=== PATIENT | male | born 1945 | race Hispanic/Latino ===

== ENCOUNTER 2018-01-21 14:09 | Inpatient (IN) | payer MEDICARE, MEDICAID ==
[2018-01-21 14:09] VITALS: BMI 26.4
--- NOTE | 2018-01-21 15:31 | ED PDOC ---
HPI: Psych/Substance Abuse Time Seen by Provider: 01/21/18 14:24 Chief Complaint (Nursing): Psychiatric Evaluation Chief Complaint (Provider): Psychiatric Evaluation History Per: Patient, Other (halfway records) History/Exam Limitations: no limitations Additional Complaint(s): 73 year old male with history of pneumonia, NSTEMI, chronic kidney disease, and hypertension brought to the ED by halfway for psychiatric evaluation. Per halfway documentation patient refuses to eat, drink or take his medications. Patient is currently being treated for UTI with Cipro. He states he likes being at the hospital more than in the halfway. Patient offers no complaints at this time. He denies any suicidal or homicidal ideation or hallucinations. Otherwise: (-) trauma, (-) fever, (-)headache, (-) dyspnea, (-) vomiting, (-) substance abuse, (-) patient intent of initiating a suicide attempt PMD: Marlo Gary Past Medical History Reviewed: Historical Data, Nursing Documentation, Vital Signs Vital Signs: Last Vital Signs Temp 98.6 F 01/21/18 14:13 Pulse 93 H 01/21/18 14:13 Resp 18 01/21/18 14:13 BP 106/65 01/21/18 14:13 Pulse Ox 100 01/21/18 14:13 - Medical History PMH: Anxiety, Asthma, Benign Prostatic Hyperplasia (bladder problem), Bipolar Disorder, CHF, COPD, Depression, HTN, Hypercholesterolemia, Hyperlipidemia, Chronic Kidney Disease (renal insufficiency), Schizophrenia - Family History Family History: States: Unknown Family Hx - Living Arrangements Living Arrangements: Penitentiary/Assist Lv - Social History Current smoker - smoking cessation education provided: No Alcohol: None Drugs: Denies - Immunization History Hx Influenza Vaccination: No (patient refused) - Home Medications Home Medications: Ambulatory Orders Medication Instructions Recorded Acetaminophen [Tylenol] 650 mg PO Q4H PRN 11/05/17 Finasteride [Proscar] 5 mg PO DAILY@1800 11/05/17 Magnesium Hydroxide [Milk Of 30 ml PO HS PRN 11/05/17 Magnesia] Mirtazapine [Remeron] 15 mg PO HS 11/05/17 Tamsulosin [Flomax] 0.4 mg PO DAILY@1800 11/05/17 Valproic Acid [Depakene] 250 mg PO BID 11/05/17 Aspirin [Ecotrin] 81 mg PO DAILY tabec 11/13/17 Metoprolol Succinate XL [Toprol XL] 12.5 mg PO DAILY tab 11/13/17 Acetaminophen [Tylenol 325mg tab] 650 mg PO Q4 PRN 01/21/18 Bacitracin OINT [Bacitracin OINT] 1 appl TOP DAILY 01/21/18 Ciprofloxacin [Cipro] 250 mg PO BID 01/21/18 Furosemide [Lasix] 20 mg PO DAILY 01/21/18 Vitamin A & D [Vitamin A & D Oint 1 appl TOP QSHIFT 01/21/18 UD Foilpak] traZODone [Desyrel] 25 mg PO HS 01/21/18 - Allergies Allergies/Adverse Reactions: Allergies Allergy/AdvReac Type Severity Reaction Status Date / Time No Known Allergies Allergy Verified 11/17/17 14:22 Review of Systems ROS Statement: Except As Marked, All Systems Reviewed And Found Negative Psych: Negative for: Suicidal ideation (or homicidal), Other (hallucinations) Physical Exam - Reviewed Nursing Documentation Reviewed: Yes Vital Signs Reviewed: Yes - Physical Exam Comments: GENERAL APPEARANCE: Patient is awake, alert, oriented x 3, in no acute distress. EYES: (-) conjunctival pallor, (-) scleral icterus, (-) nystagmus. ENMT: Mucous membranes dry. Airway patent: (-) stridor. NECK: Supple HEART AND CARDIOVASCULAR: (-) irregularity CHEST AND RESPIRATORY: (-) rales, (-) rhonchi, (-) wheezes; breath sounds equal. Respirations even and nonlabored. ABDOMEN: Soft, (-) distention, (-) tenderness, (-) guarding. NEURO AND PSYCH: Mental status as above. Affect: flat. Pupils equal and reactive ; EOMI; (-) facial asymmetry; tongue and uvula midline. - Laboratory Results Result Diagrams: 01/22/18 05:45 01/22/18 05:45 - ECG O2 Sat by Pulse Oximetry: 100 (RA) Pulse Ox Interpretation: Normal Medical Decision Making Medical Decision Making: Time: 1455 Initial Impression: psychiatric evaluation Initial Plan: --Crisis evaluation --Re-evaluation Accucheck: 91 EKG upon ED arrival: SR @ 91bpm with occasional PVC, QTc 447 1555 Per crisis evaluation, patient to be admitted for unspecified depressive disorder per Dr Leung. CBC, CMP, EKG, CXR, U/A, Urine Drug Screen, Serum Alcohol ordered. IV access and IVF ordered. 1605 EKG: NSR @ 92bpm, QTc 499, (-) ST elevation CBC unremarkable. 1720 Alcohol Serum < 10 CMP reviewed, hyperkalemia due to hemolyzed specimen. Dehydration noted on chemistry consistent with HPI. 1735 Date of service: 01/21/2018 HISTORY: psych admission COMPARISON: Chest radiograph dated 10/06/2014 FINDINGS: LUNGS: No active pulmonary disease. PLEURA: Stable elevation of the left hemidiaphragm. No significant pleural effusion identified, no pneumothorax apparent. CARDIOVASCULAR: Atherosclerotic aortic calcifications. Cardiomediastinal silhouette within normal limits. OSSEOUS STRUCTURES: Unchanged. VISUALIZED UPPER ABDOMEN: Normal. OTHER FINDINGS: None. IMPRESSION: No active disease. Pending U/A and Urine drug screen. 3rd EKG: SR @ 89bpm (-) ST elevation, QTc 479 1810 Additional 1L NS ordered. Patient remains AAOx3, in no acute distress. Lungs clear to auscultation, cardiac RRR, abdomen soft, non-tender, repeat neuro exam shows no focal findings. 193 Straight cath performed by ED RN with no production of urine. Patient had wet diaper on evaluation. Patient unwilling to notify ED staff when he has to urinate. Upon review of halfway chart, patient had U/A performed on that confirmed UTI and patient being treated with Cipro. Utox could not be obtained at this time. Arrangements made for admission. Vitals stable. Scribe Attestation: Documented by Sherry Benson, acting as a scribe for ÓSCAR Dean. Provider Scribe Attestation: All medical record entries made by the Scribe were at my direction and personally dictated by me. I have reviewed the chart and agree that the record accurately reflects my personal performance of the history, physical exam, medical decision making, and the department course for this patient. I have also personally directed, reviewed, and agree with the discharge instructions and disposition. Disposition - Clinical Impression Clinical Impression: Failure to thrive, Depressive episode, UTI (urinary tract infection) - Patient ED Disposition Is Patient to be Admitted: Yes Discussed With : Maria Fernanda Leung Doctor Will See Patient In The: Hospital Counseled Patient/Family Regarding: Studies Performed, Diagnosis - Disposition Disposition Time: 20:00 Condition: FAIR - Pt Status Changed To: Hospital Disposition Of: Inpatient - Admit Certification Admit to Inpatient:: After my assessment, the patient will require hospitalization for at least two midnights. This is because of the severity of symptoms shown, intensity of services needed, and/or the medical risk in this patient being treated as an outpatient. - POA Present On Arrival: None Results - Lab Results Lab Results: 01/21/18 01/21/18 01/21/18 16:17 16:17 14:45 WBC 9.3 RBC 4.48 Hgb 12.6 Hct 38.6 MCV 86.0 D MCH 28.0 MCHC 32.6 L RDW 15.6 H Plt Count 196 MPV 9.4 Neut % (Auto) 77.7 H Lymph % (Auto) 11.7 L Charlton % (Auto) 8.1 Eos % (Auto) 2.0 Baso % (Auto) 0.5 Neut # (Auto) 7.2 H Lymph # (Auto) 1.1 Charlton # (Auto) 0.8 Eos # (Auto) 0.2 Baso # (Auto) 0.0 Sodium 143 Potassium 5.2 H Chloride 112 H Carbon Dioxide 21 L Anion Gap 15 BUN 36 H Creatinine 1.0 Est GFR ( Amer) > 60 Est GFR (Non-Af Amer) > 60 POC Glucose (mg/dL) 91 Random Glucose 75 Calcium 9.2 Total Bilirubin 2.0 H AST 59 D ALT < 6 L D Alkaline Phosphatase 68 Total Protein 8.4 H Albumin 3.9 Globulin 4.5 H Albumin/Globulin Ratio 0.9 L Alcohol, Quantitative < 10
[2018-01-21] MEDS ORDERED: Sodium Chloride 0.9% 1,000 ML IV ONE (15:58)
[2018-01-21 16:33] LABS: BASO % 0.5 % (0.0-2.0); EOS # 0.2 K/uL (0.0-0.7); HEMOGLOBIN 12.6 g/dL (12.0-18.0); LYMPH # 1.1 K/uL (1.0-4.3); LYMPH % 11.7 % (20.0-40.0); MEAN CORPUSCULAR HGB CONC 32.6 g/dL (33.0-37.0); MEAN PLATELET VOLUME 9.4 fl (7.2-11.7); MONO # 0.8 K/uL (0.0-0.8); MONO % 8.1 % (0.0-10.0); NEUT # 7.2 K/uL (1.8-7.0); NEUT % 77.7 % (50.0-75.0); NRBC % 0.1 % (0.0-0.0); RBC 4.48 Mil/uL (4.40-5.90); RED CELL DISTRIBUTION WIDTH 15.6 % (11.5-14.5); WHITE BLOOD COUNT 9.3 K/uL (4.8-10.8)
[2018-01-21 16:48] LABS: CALCIUM 9.2 mg/dL (8.4-10.2); GFR NON-AFRICAN AMERICAN > 60
[2018-01-21 17:00] LABS: ALB/GLOB RATIO 0.9 (1.0-2.1); ALBUMIN 3.9 g/dL (3.5-5.0); ALT/SGPT < 6 U/L (21-72); AST/SGOT 59 U/L (17-59); BLOOD UREA NITROGEN 36 mg/dl (9-20)
--- NOTE | 2018-01-21 17:16 | RAD ---
Date of service: 01/21/2018 HISTORY: psych admission COMPARISON: Chest radiograph dated 10/06/2014 FINDINGS: LUNGS: No active pulmonary disease. PLEURA: Stable elevation of the left hemidiaphragm. No significant pleural effusion identified, no pneumothorax apparent. CARDIOVASCULAR: Atherosclerotic aortic calcifications. Cardiomediastinal silhouette within normal limits. OSSEOUS STRUCTURES: Unchanged. VISUALIZED UPPER ABDOMEN: Normal. OTHER FINDINGS: None. IMPRESSION: No active disease.
[2018-01-21] MEDS ORDERED: Sodium Chloride 0.9% 1,000 ML IV SCH (18:15)
[2018-01-21] MEDS ORDERED: Alum-Mag Hydrox-Simethicone Susp (30 mL) PO PRN (22:37)
[2018-01-21] MEDS ORDERED: Magnesium Hydroxide Susp 30 ml UD PO PRN (22:37)
[2018-01-21] MEDS ORDERED: Bismuth Subsalicylate 262 mg/15 ml Sus (240 ml) PO PRN (22:37)
--- NOTE | 2018-01-21 23:11 | PCM.BM ---
<NunezDat jensen - Last Filed: 01/21/18 23:09> Treatment Plan Problems - Problems identified on initial assessmt less than optimal nutrition Date Initiated: 01/21/18 Time Initiated: 23:09 Assessment reference: NA Status: Active medication nonadherence Date Initiated: 01/21/18 Time Initiated: 23:10 Assessment reference: NA Status: Active Treatment assets and liabiliti Patient Assests: negotiates basic needs Patient Liabilities: physical pain, medical problems, auditory impairment - Milieu Protocol Maintain good personal hygiene: daily Encourage regular showers, daily Remind patient to perform daily oral care, daily Assist patient to perform ADL's Maintain personal safety: every shift Educate patient to report safety concerns to staff, every shift Monitor environment for contraband/sharps Medication safety: Monitor for expected outcome, potential side effects: every shift, Assess barriers to learning: every shift, Assess readiness for medication education: every shift <Maria Fernanda Leung - Last Filed: 01/22/18 10:45> - Diagnosis (1) Bipolar disorder Status: Acute Interventions: Medication management, Individual and group therapy, Psychoeducation 01/22/18 10:45 <Sanjana Meza - Last Filed: 01/22/18 11:55> Family Contact Family involvement: Famliy/SO not involved - Outside Agency [facility] involvment: Information-sharing Agency contact number: [phone] - Goals for Treatment Patient goals for treatment: Pt to be encouraged to attend activity and clinical groups 3-5x per week to identify at least 2 contributing factors to depression and suicide attempt. Psycho-education to be provided to patient/ family regarding benefits of medications and treatment adherence. Pt to be encouraged to participate in group milieu to develop effective coping skills to reduce depression and free of suicide ideation. Coordinate discharge resource needs by providing referral for psychiatric treatment follow up in the community. Discharge/Continuing Care - Education Needs Education Needs: Patient Medication, Patient Diagnosis/Disease Process, Patient Coping Skills, Patient Placement options, Patient Community resources, Patient Uses of Medical Equipment, Patient Health Practices/Safety, Patient Personal Hygiene/Grooming, Patient Aftercare Safety Plan - Discharge Discharge Criteria: Tolerates medication w/o severe side effects, Free of Suicidal thoughts, Ability to care for self, Reduction of target symptoms Discharge to:: Assisted - Additional Comments 01/22/18 11:51 Pt seen and discussed in team meeting. Reason for hospitalization reviewed and discussed. Pt reported he was referred to the hospital because 'I had an infection of the bladder." Pt reported his appetite is "a little better." Pt reported he likes t drink Ensure Clear. Pt assessed for suicide ideation. Pt denied making passive wishes. Pt reported he wishes to live. Pt reported refusing his medications at the [facility], but unable to state why. Pt reported his memory is "so so." Pt's social and medical issues reviewed. Pt's medications reviewed and discussed with pt. Pt's tx plan reviewed and pt verbalized agreement. SW to continue to follow case. - Treatment Team Participation Discussed with Family/SO: No Was Patient/Family/SO present at Treatment Team Meeting: Yes
[2018-01-22 06:40] LABS: HEMOGLOBIN 12.2 g/dL (12.0-18.0); MEAN CELL VOLUME 85.7 fl (80.0-94.0); MEAN CORPUSCULAR HEMOGLOBIN 28.2 pg (27.0-31.0); RBC 4.32 Mil/uL (4.40-5.90); RED CELL DISTRIBUTION WIDTH 16.2 % (11.5-14.5); WHITE BLOOD COUNT 10.2 K/uL (4.8-10.8)
[2018-01-22 06:48] LABS: LDL CHOLESTEROL 71 mg/dL (0-129)
[2018-01-22 06:54] LABS: T4 8.66 ug/dl (5.5-11.0)
[2018-01-22 06:56] LABS: IRON 15 ug/dL (49-181)
[2018-01-22 07:06] LABS: % IRON SATURATION 9 % (20-55); TOTAL IRON BINDING CAPACITY 180 ug/dL (250-450)
[2018-01-22 07:07] LABS: ALB/GLOB RATIO 0.9 (1.0-2.1); ALBUMIN 3.2 g/dL (3.5-5.0); ALT/SGPT 17 U/L (21-72); AST/SGOT 20 U/L (17-59); BLOOD UREA NITROGEN 29 mg/dl (9-20); CALCIUM 9.2 mg/dL (8.4-10.2); GFR NON-AFRICAN AMERICAN > 60; HDL CHOLESTEROL 22 MG/DL (30-70)
[2018-01-22] MEDS ORDERED: Vitamins A & D Oint UD Foilpak TOP SCH (10:15)
[2018-01-22] MEDS ORDERED: Bacitracin OINT 15GM TOP SCH (10:15)
--- NOTE | 2018-01-22 10:15 | CARD ---
APPROVED REPORT Date of service: 01/21/2018 <Conclusion> Sinus rhythm with occasional premature ventricular complexes and fusion complexes Junctional ST depression, probably normal Borderline ECG
--- NOTE | 2018-01-22 10:46 | PCM.PSYCH ---
Initial Psychiatric Evaluation - Initial Psychiatric Evaluation Type of Admission: Voluntary Legal Status: Capacity Chief Complaint (in patient's own words): Decrease functioning/ refusal to eat and take medications Patient's Reaction to Hospitalization: HPI: 73 yo male w/ h/o bipolar disorder vs schizoaffective disorder, was sent by halfway for worsening depression, refusal to eat/drink food and take medications and also make suicidal comments, such as asking how long he would need to stop eating before he would . Patient is denying to insurance writer that he made any suicidal comments and denies any acute ideation to harm self or others. He denies acute AH/VH. PPHx: Currently being prescribed Depakote, Remeron and Trazodone, but patient has been non-compliant with medications PMHx: CAD, HLD, BPH, CKD, Obstructive and reflex uropathy, HTN; current UTI- started on Cipro 01/19/18 ALL: NKDA SHx: Resides in [place], no drugs/cig/etoh Current Medications: Active Medications Generic Name Dose Route Start Last Admin Trade Name Freq PRN Reason Stop Dose Admin Acetaminophen 650 mg 01/21/18 22:37 Tylenol 325mg Tab PO Q4 PRN Pain, moderate (4-7) Al Hydrox/Mg Hydrox/Simethicone 30 ml 01/21/18 22:37 Maalox Plus 30 Ml PO Q4 PRN Dyspepsia Aspirin 81 mg 01/22/18 10:15 Ecotrin PO DAILY PACO Bacitracin 1 ea 01/22/18 10:15 Bacitracin TOP DAILY [facility] Bismuth Subsalicylate 524 mg 01/21/18 22:37 Pepto-Bismol PO Q4 PRN Diarrhea Ciprofloxacin 250 mg 01/22/18 21:00 Cipro PO Q12 [facility] Protocol Divalproex Sodium 250 mg 01/22/18 10:45 Depakote Sprinkles PO BID PACO Finasteride 5 mg 01/22/18 18:00 Proscar PO DAILY@1800 PACO Furosemide 20 mg 01/22/18 10:15 Lasix PO DAILY PACO Sodium Chloride 1,000 mls @ 1,000 mls/hr 01/21/18 18:15 01/21/18 19:21 Sodium Chloride 0.9% IV 1,000 mls/hr .Q1H PACO Administration Lorazepam 0.5 mg 01/21/18 22:37 Ativan PO 02/04/18 22:38 HS PRN Insomnia Lorazepam 0.5 mg 01/22/18 02:02 Ativan PO Q6 PRN Agitation Magnesium Hydroxide 30 ml 01/21/18 22:37 Milk Of Magnesia PO HS PRN Constipation Megestrol Acetate 400 mg 01/22/18 10:45 Megace PO DAILY [facility] Metoprolol Succinate 12.5 mg 01/22/18 10:15 Toprol Xl PO DAILY [facility] Mirtazapine 15 mg 01/22/18 22:00 Remeron PO HS [facility] Tamsulosin HCl 0.4 mg 01/22/18 18:00 Flomax PO DAILY@1800 [facility] Vitamin A 1 ea 01/22/18 10:15 Vitamin A & D Oint Ud Foilpak TOP QSHIFT [facility] Past Psychiatric History - Past Psychiatric History Previous Treatment History: Inpatient Pertinent Medical Hx (Current Medical&Sleep Prob, Allergies): Allergies Allergy/AdvReac Type Severity Reaction Status Date / Time No Known Allergies Allergy Verified 11/17/17 14:22 Acetaminophen [Tylenol] 650 mg PO Q4H PRN 11/05/17 Finasteride [Proscar] 5 mg PO DAILY@1800 11/05/17 Magnesium Hydroxide [Milk Of Magnesia] 30 ml PO HS PRN 11/05/17 Mirtazapine [Remeron] 15 mg PO HS 11/05/17 Tamsulosin [Flomax] 0.4 mg PO DAILY@1800 11/05/17 Valproic Acid [Depakene] 250 mg PO BID 11/05/17 Aspirin [Ecotrin] 81 mg PO DAILY tabec 11/13/17 Metoprolol Succinate XL [Toprol XL] 12.5 mg PO DAILY tab 11/13/17 Acetaminophen [Tylenol 325mg tab] 650 mg PO Q4 PRN 01/21/18 Bacitracin OINT [Bacitracin OINT] 1 appl TOP DAILY 01/21/18 Ciprofloxacin [Cipro] 250 mg PO BID 01/21/18 Furosemide [Lasix] 20 mg PO DAILY 01/21/18 Vitamin A & D [Vitamin A & D Oint UD Foilpak] 1 appl TOP QSHIFT 01/21/18 traZODone [Desyrel] 25 mg PO HS 01/21/18 Review of Systems - Psychiatric Psychiatric: As Per HPI, Abnormal Sleep Pattern, Behavioral Changes, Change in Appetite, Depression, Difficulty Concentrating, Irritability, Mood Swings, Suicidal Ideation Mental Status Examination - Personal Presentation Personal Presentation: Looks stated age - Affect Affect: Constricted - Motor Activity Motor Activity: Calm - Reliability in Providing Information Reliability in Providing Information: Poor, due to cognitve impairment - Speech Speech: Tangential, Coherent - Mood Mood: Depressed - Formal Thought Process Formal Thought Process: Loosening of associations - Hallucinations/Delusions Additional comments: Denies AH/VH - Obsessions/Compulsions Obsessions: No Compulsions: No - Cognitive Functions Orientation: Person, Place, Situation, Time Sensorium: Alert Estimate of Intelligence: Average Judgement: Imparied, as evidence by: Lack of insight into illness Memory: Recent impaired, as evidence by: Inability to recall events of the day, Remote impaired as evidenced by: Inability to recall sig life events - Risk Risk: Suicidal, Diminished functioning - Strength & Assets Inventory Strength & Assets Inventory: Cooperative - Limitations Limitations: Decreased memory, recent DSM 5 DX - DSM 5 DSM 5 Diagnosis: Bipolar Disorder; r/o Dementia - Recommended/Plan of Treatment Treatment Recommendations and Plan of Treatment: Bipolar Disorder; r/o Dementia -Admit to psychiatry unit -Individual and group therapy -Restart Remeron 15 mg PO HS and Depakote 250 mg PO BID; patient has not been compliant with medications -Pt on Cipro for UTI -Medicine consult -Start Megace -Dietary consult -PT/OT screening -Disposition planning Projected ELOS: 7-10 days Discharge Plan and Discharge Criteria: Discharge when patient is psychiatrically stable - Smoking Cessation Smoking Cessation Initiated: No Reason for not providing: Not indicated
[2018-01-22] MEDS: Bacitracin 500 Units/gm Oint Foilpak UD TOP SCH (11:35)
[2018-01-22] MEDS: Divalproex 125 mg Sprinkle Capsule PO SCH ×2 (11:37→17:01)
[2018-01-22] MEDS: Megestrol Acetate 40 mg/ml Cup PO SCH (11:39)
[2018-01-22] MEDS: Metoprolol Succinate 25 mg XL Tab PO SCH (11:41)
[2018-01-22 12:15] LABS: FOLATE > 20.0 ng/mL
[2018-01-23] MEDS: Megestrol Acetate 40 mg/ml Cup PO SCH (09:31)
[2018-01-23] MEDS: Divalproex 125 mg Sprinkle Capsule PO SCH ×2 (09:32→17:02)
[2018-01-23] MEDS: Bacitracin 500 Units/gm Oint Foilpak UD TOP SCH (10:04)
[2018-01-23] MEDS: Metoprolol Succinate 25 mg XL Tab PO SCH (10:04)
--- NOTE | 2018-01-23 10:05 | PCM.PYCHPN ---
Psychiatric Progress Note - Psychiatric Progress Note Patient seen today, length of contact: Patient evaluated, case discussed w/ team , chart reviewed Patient Chief Complaint: Decreased functioning/ refusal to eat and take medications Problems Identified/Issues Discussed: Patient is currently calm w/ parts data writer. He has been taking his medications. He continues to have poor appetite, but eats w/ staff encourage. Patient also given Ensure supplements. He has poor insight/judgment into his lack of self care, likely due to cognitive impairment. He denies acute SI. Medication Change: No Medical Record Reviewed: Yes Consults ordered or reviewed: Medicine/ PT/OT/ Dietitian Mental Status Examination - Cognitive Function Orientation: Person, Place, Situation, Time Memory: Impaired Association: WNL Fund of Knowledge: WNL Decription of patient's judgement and insights: Poor I/J - Mood Mood: Depressed - Affect Affect: Constricted - Speech Speech: Appropriate - Formal Thought Process Formal Thought Process: Loosening of associations Psychotic Thoughts and Behaviors: Denies AH/VH/paranoia/delusions - Suicidal Ideation Suicidal Ideation: No - Homicidal Ideation Homicidal Ideation: No Goal/Treatment Plan - Goal/Treatment Plan Need for Continued Stay: Remain at risks for inpatient hospitalization, Discharge may exacerbated symptoms Progress Toward Problem(s) and Goals/Treatment Plan: Bipolar Disorder; Dementia -Individual and group therapy -Continue Remeron 15 mg PO HS and Depakote 250 mg PO BID -Pt on Cipro for UTI -Medicine consult -Continue Megace -Dietary consult -PT/OT screening -Disposition planning Estimated Date of D/C: 01/28/18
[2018-01-23 14:43] VITALS: O2SAT 100
--- NOTE | 2018-01-23 17:51 | CP.PCM.CON ---
<EvelynLuis - Last Filed: 01/23/18 17:45> History of Present Illness - History of Present Illness History of Present Illness: 73 y/o with a PMHx of pneumonia, NSTEMI, chronic kidney disease, BPH and hypertension was admitted for psychiatric evaluation due to aggravating depression. Today, pt was evaluated and examined with Dr Chiu by bedside. Pt is not adherent to medications. Pt denies headache, chest pain, SOB, abdominal pain, nausea. Review of Systems - Constitutional Constitutional: absent: Chills, Fever - EENT Nose/Mouth/Throat: absent: Epistaxis, Neck Pain - Cardiovascular Cardiovascular: absent: Chest Pain, Palpitations - Respiratory Respiratory: absent: Dyspnea, Wheezing, Stridor - Gastrointestinal Gastrointestinal: absent: Abdominal Pain, Hematemesis, Hematochezia, Nausea Past Patient History - Infectious Disease Hx of Infectious Diseases: None - Tetanus Immunizations Tetanus Immunization: Unknown - Past Medical History & Family History Past Medical History?: Yes - Past Social History Alcohol: None Drugs: Denies - CARDIAC Hx Congestive Heart Failure: Yes Hx Hypercholesterolemia: Yes Hx Hypertension: Yes - PULMONARY Hx Asthma: Yes Hx Chronic Obstructive Pulmonary Disease (COPD): Yes - HEENT Hx HEENT Problems: Yes Hx Cataracts: Yes Other/Comment: hard of hearing - RENAL Hx Chronic Kidney Disease: Yes (renal insufficiency) - PSYCHIATRIC Hx Anxiety: Yes Hx Bipolar Disorder: Yes Hx Depression: Yes Hx Schizophrenia: Yes - SURGICAL HISTORY Hx Tonsillectomy: Yes - ANESTHESIA Hx Anesthesia: Yes Hx Anesthesia Reactions: No Hx Malignant Hyperthermia: No Meds Allergies/Adverse Reactions: Allergies Allergy/AdvReac Type Severity Reaction Status Date / Time No Known Allergies Allergy Verified 11/17/17 14:22 - Medications Medications: Current Medications Acetaminophen (Tylenol 325mg Tab) 650 mg PO Q4 PRN PRN Reason: Pain, moderate (4-7) Al Hydrox/Mg Hydrox/Simethicone (Maalox Plus 30 Ml) 30 ml PO Q4 PRN PRN Reason: Dyspepsia Aspirin (Ecotrin) 81 mg PO DAILY [facility] Last Admin: 01/23/18 09:30 Dose: 81 mg Bacitracin (Bacitracin) 1 ea TOP DAILY [facility] Last Admin: 01/23/18 10:04 Dose: 1 ea Bismuth Subsalicylate (Pepto-Bismol) 524 mg PO Q4 PRN PRN Reason: Diarrhea Ciprofloxacin (Cipro) 250 mg PO Q12 [facility] PRN Reason: Protocol Last Admin: 01/23/18 09:30 Dose: 250 mg Divalproex Sodium (Depakote Sprinkles) 250 mg PO BID [facility] Last Admin: 01/23/18 17:02 Dose: 250 mg Finasteride (Proscar) 5 mg PO DAILY@1800 [facility] Last Admin: 01/23/18 17:03 Dose: 5 mg Furosemide (Lasix) 20 mg PO DAILY [facility] Last Admin: 01/23/18 09:30 Dose: 20 mg Sodium Chloride (Sodium Chloride 0.9%) 1,000 mls @ 1,000 mls/hr IV .Q1H [facility] Last Admin: 01/21/18 19:21 Dose: 1,000 mls/hr Lactic Acid (Lac-Hydrin 12% Lotion (225 G)) 1 applic TOP TID [facility] Last Admin: 01/23/18 16:12 Dose: 1 applic Lorazepam (Ativan) 0.5 mg PO HS PRN PRN Reason: Insomnia Stop: 02/04/18 22:38 Lorazepam (Ativan) 0.5 mg PO Q6 PRN PRN Reason: Agitation Magnesium Hydroxide (Milk Of Magnesia) 30 ml PO HS PRN PRN Reason: Constipation Megestrol Acetate (Megace) 400 mg PO DAILY [facility] Last Admin: 01/23/18 09:31 Dose: 400 mg Metoprolol Succinate (Toprol Xl) 12.5 mg PO DAILY [facility] Last Admin: 01/23/18 10:04 Dose: 12.5 mg Mirtazapine (Remeron) 15 mg PO HS [facility] Last Admin: 01/22/18 21:02 Dose: 15 mg Tamsulosin HCl (Flomax) 0.4 mg PO DAILY@1800 [facility] Last Admin: 01/23/18 17:03 Dose: 0.4 mg Vitamin A (Vitamin A & D Oint Ud Foilpak) 1 ea TOP QSHIFT [facility] Physical Exam - Constitutional Appears: No Acute Distress - Head Exam Head Exam: ATRAUMATIC, NORMAL INSPECTION - Eye Exam Eye Exam: EOMI - ENT Exam ENT Exam: Mucous Membranes Dry - Neck Exam Neck exam: Positive for: Full Rom. Negative for: Meningismus, Tenderness - Respiratory Exam Respiratory Exam: NORMAL BREATHING PATTERN. absent: Rhonchi, Wheezes - Cardiovascular Exam Cardiovascular Exam: +S1, +S2 - GI/Abdominal Exam GI & Abdominal Exam: Normal Bowel Sounds, Soft. absent: Distended, Guarding, Tenderness - Neurological Exam Neurological exam: Alert, Oriented x3 Results - Vital Signs Recent Vital Signs: Last Vital Signs Temp 98.6 F 01/23/18 16:04 Pulse 85 01/23/18 16:04 Resp 18 01/23/18 16:04 BP 110/63 01/23/18 16:04 Pulse Ox 100 01/23/18 14:46 - Labs Result Diagrams: 01/22/18 05:45 01/22/18 05:45 Labs: Laboratory Results - last 24 hr 01/22/18 05:45 RPR Nonreactive Assessment & Plan - Assessment and Plan (Free Text) Assessment: 73 y/o with a PMHx of pneumonia, NSTEMI, chronic kidney disease, BPH and hypertension was admitted for psychiatric evaluation due to aggravating depression. --Pt hemodynamically stable. --Home medications reviewed and resumed --Continue psychiatry management - Date & Time Date: 01/23/18 Time: 11:55 <Kirby Chiu - Last Filed: 01/27/18 17:17> Meds - Medications Medications: Current Medications Acetaminophen (Tylenol 325mg Tab) 650 mg PO Q4 PRN PRN Reason: Pain, moderate (4-7) Al Hydrox/Mg Hydrox/Simethicone (Maalox Plus 30 Ml) 30 ml PO Q4 PRN PRN Reason: Dyspepsia Aspirin (Ecotrin) 81 mg PO DAILY [facility] Last Admin: 01/27/18 08:38 Dose: 81 mg Bacitracin (Bacitracin) 1 ea TOP DAILY [facility] Last Admin: 01/27/18 08:37 Dose: 1 ea Bismuth Subsalicylate (Pepto-Bismol) 524 mg PO Q4 PRN PRN Reason: Diarrhea Ciprofloxacin (Cipro) 250 mg PO Q12 [facility] PRN Reason: Protocol Last Admin: 01/27/18 08:38 Dose: 250 mg Divalproex Sodium (Depakote Sprinkles) 250 mg PO DAILY [facility] Last Admin: 01/27/18 08:37 Dose: 250 mg Divalproex Sodium (Depakote Dr(*Bid*)) 375 mg PO DAILY@1700 [facility] Last Admin: 01/26/18 16:26 Dose: 375 mg Finasteride (Proscar) 5 mg PO DAILY@1800 [facility] Last Admin: 01/26/18 17:49 Dose: 5 mg Furosemide (Lasix) 20 mg PO DAILY [facility] Last Admin: 01/24/18 11:41 Dose: 20 mg Lactic Acid (Lac-Hydrin 12% Lotion (225 G)) 1 applic TOP TID [facility] Last Admin: 01/27/18 16:51 Dose: 1 applic Lorazepam (Ativan) 0.5 mg PO HS PRN PRN Reason: Insomnia Stop: 02/04/18 22:38 Lorazepam (Ativan) 0.5 mg PO Q6 PRN PRN Reason: Agitation Magnesium Hydroxide (Milk Of Magnesia) 30 ml PO HS PRN PRN Reason: Constipation Megestrol Acetate (Megace) 400 mg PO DAILY [facility] Last Admin: 01/27/18 08:38 Dose: 400 mg Metoprolol Succinate (Toprol Xl) 12.5 mg PO DAILY [facility] Last Admin: 01/27/18 08:38 Dose: 12.5 mg Mirtazapine (Remeron) 22.5 mg PO HS [facility] Tamsulosin HCl (Flomax) 0.4 mg PO DAILY@1800 [facility] Last Admin: 01/26/18 17:49 Dose: 0.4 mg Vitamin A (Vitamin A & D Oint Ud Foilpak) 1 ea TOP QSHIFT [facility] Results - Vital Signs Recent Vital Signs: Last Vital Signs Temp 97 F L 01/27/18 15:48 Pulse 78 01/27/18 15:48 Resp 18 01/27/18 15:48 BP 110/63 01/27/18 15:48 Pulse Ox 100 01/23/18 14:46 - Labs Result Diagrams: 01/24/18 06:18 01/24/18 06:18 Assessment & Plan - Assessment and Plan (Free Text) Plan: I was present during evaluation and discussed with Dr Rivas re plans of care and mgt. Kirby Chiu M.D.
[2018-01-23 22:41] LABS: SQUAMOUS EPITHIAL 6 /hpf (0-5); URINE BILIRUBIN NEGATIVE (NEGATIVE); URINE BLOOD MODERATE (NEGATIVE); URINE CLARITY TURBID (Clear); URINE COLOR AMBER (YELLOW); URINE GLUCOSE (UA) NEG (Normal); URINE LEUKOCYTE ESTERASE MOD Leu/uL (Negative); URINE PROTEIN 100 mg/dL (NEGATIVE); URINE UROBILINOGEN 0.2-1.0 mg/dL (0.2-1.0); WBC CLUMPS MANY /hpf
[2018-01-24 06:37] LABS: BASO % 0.4 % (0.0-2.0); EOS # 0.4 K/uL (0.0-0.7); EOS % 4.6 % (0.0-4.0); HEMOGLOBIN 11.3 g/dL (12.0-18.0); LYMPH # 1.5 K/uL (1.0-4.3); LYMPH % 18.3 % (20.0-40.0); MEAN CELL VOLUME 84.6 fl (80.0-94.0); MEAN CORPUSCULAR HEMOGLOBIN 28.1 pg (27.0-31.0); MEAN CORPUSCULAR HGB CONC 33.2 g/dL (33.0-37.0); MEAN PLATELET VOLUME 9.7 fl (7.2-11.7); MONO # 0.8 K/uL (0.0-0.8); MONO % 9.2 % (0.0-10.0); NEUT # 5.6 K/uL (1.8-7.0); NEUT % 67.5 % (50.0-75.0); NRBC % 0.1 % (0.0-0.0); RED CELL DISTRIBUTION WIDTH 15.6 % (11.5-14.5); WHITE BLOOD COUNT 8.3 K/uL (4.8-10.8)
[2018-01-24 07:04] LABS: ALB/GLOB RATIO 0.8 (1.0-2.1); ALBUMIN 2.9 g/dL (3.5-5.0); ALT/SGPT 18 U/L (21-72); AST/SGOT 21 U/L (17-59); BLOOD UREA NITROGEN 23 mg/dl (9-20); GFR NON-AFRICAN AMERICAN > 60
--- NOTE | 2018-01-24 09:00 | PCM.PYCHPN ---
Psychiatric Progress Note - Psychiatric Progress Note Patient seen today, length of contact: Patient evaluated, case discussed w/ team , chart reviewed Patient Chief Complaint: Decreased functioning/ refusal to eat and take medications Problems Identified/Issues Discussed: Patient is calm and pleasant. He continues to have poor appetite and PO intake , despite staff encouragement and attempting to feed the patient. He will drink Ensure Clear, but needs to be reminded to keep drinking. He has poor insight/judgment into his lack of self care, likely due to cognitive impairment. He denies acute SI. Diagnostic Results: VPA 27.7 on 01/24/18 Medication Change: Yes (Increase Depakote) Medical Record Reviewed: Yes Consults ordered or reviewed: Medicine/ PT/OT/ Dietitian/ Psychology consult Mental Status Examination - Cognitive Function Orientation: Person, Place, Situation, Time Memory: Impaired Attention: Poor Concentration: Poor Decription of patient's judgement and insights: Poor I/J - Mood Mood: Neutral - Affect Affect: Constricted - Speech Speech: Appropriate - Formal Thought Process Formal Thought Process: Loosening of associations Psychotic Thoughts and Behaviors: Denies AH/VH/paranoia/delusions - Suicidal Ideation Suicidal Ideation: No - Homicidal Ideation Homicidal Ideation: No Goal/Treatment Plan - Goal/Treatment Plan Need for Continued Stay: Remain at risks for inpatient hospitalization, Discharge may exacerbated symptoms, Severe functional impairment Progress Toward Problem(s) and Goals/Treatment Plan: Bipolar Disorder; Dementia -Individual and group therapy -Continue Remeron 15 mg PO HS -Increase Depakote to 250 mg PO Daily/ 375 mg PO Daily@1700; VPA 27.7 on -Pt on Cipro for UTI -Medicine consult -Continue Megace -Dietary consult -PT/OT screening -Psychology consult to evaluate neurocognitive function -Disposition planning Estimated Date of D/C: 01/28/18
[2018-01-24] MEDS: Bacitracin 500 Units/gm Oint Foilpak UD TOP SCH (09:13)
[2018-01-24] MEDS: Divalproex 125 mg Sprinkle Capsule PO SCH (09:16)
[2018-01-24] MEDS: Megestrol Acetate 40 mg/ml Cup PO SCH (09:17)
[2018-01-24] MEDS: Metoprolol Succinate 25 mg XL Tab PO SCH (09:18)
--- NOTE | 2018-01-24 11:26 | CP.PCM.CON ---
History of Present Illness - History of Present Illness History of Present Illness: Pt is a 73 year old male admitted to [facility] and referred to the science writer for evaluation. On the DRS, pt scored an overall score of 103. Pt scored within normal limits on Attention. His other skills all fell in the Deficient Range ( Memory, Initiation, conceptualization, and construction) Overall 103 Attention 35 wnl Construction 3 deficient Conceptualization 26 deficient Memory 13 deficient Initiation 26 deficient Cognitive decline evident from 1 1/2 year ago when the patient was seen by the science writer at [facility]. Past Patient History - Infectious Disease Hx of Infectious Diseases: None - Tetanus Immunizations Tetanus Immunization: Unknown - Past Medical History & Family History Past Medical History?: Yes - Past Social History Alcohol: None Drugs: Denies - CARDIAC Hx Congestive Heart Failure: Yes Hx Hypercholesterolemia: Yes Hx Hypertension: Yes - PULMONARY Hx Asthma: Yes Hx Chronic Obstructive Pulmonary Disease (COPD): Yes - HEENT Hx HEENT Problems: Yes Hx Cataracts: Yes Other/Comment: hard of hearing - RENAL Hx Chronic Kidney Disease: Yes (renal insufficiency) - PSYCHIATRIC Hx Anxiety: Yes Hx Bipolar Disorder: Yes Hx Depression: Yes Hx Schizophrenia: Yes - SURGICAL HISTORY Hx Tonsillectomy: Yes - ANESTHESIA Hx Anesthesia: Yes Hx Anesthesia Reactions: No Hx Malignant Hyperthermia: No Meds Allergies/Adverse Reactions: Allergies Allergy/AdvReac Type Severity Reaction Status Date / Time No Known Allergies Allergy Verified 11/17/17 14:22 - Medications Medications: Current Medications Acetaminophen (Tylenol 325mg Tab) 650 mg PO Q4 PRN PRN Reason: Pain, moderate (4-7) Al Hydrox/Mg Hydrox/Simethicone (Maalox Plus 30 Ml) 30 ml PO Q4 PRN PRN Reason: Dyspepsia Aspirin (Ecotrin) 81 mg PO DAILY [facility] Last Admin: 01/24/18 09:15 Dose: 81 mg Bacitracin (Bacitracin) 1 ea TOP DAILY [facility] Last Admin: 01/24/18 09:13 Dose: 1 ea Bismuth Subsalicylate (Pepto-Bismol) 524 mg PO Q4 PRN PRN Reason: Diarrhea Ciprofloxacin (Cipro) 250 mg PO Q12 [facility] PRN Reason: Protocol Last Admin: 01/24/18 09:13 Dose: 250 mg Divalproex Sodium (Depakote Sprinkles) 250 mg PO DAILY [facility] Divalproex Sodium (Depakote Dr(*Bid*)) 375 mg PO DAILY@1700 [facility] Finasteride (Proscar) 5 mg PO DAILY@1800 [facility] Last Admin: 01/23/18 17:03 Dose: 5 mg Furosemide (Lasix) 20 mg PO DAILY [facility] Last Admin: 01/23/18 09:30 Dose: 20 mg Lactic Acid (Lac-Hydrin 12% Lotion (225 G)) 1 applic TOP TID [facility] Last Admin: 01/24/18 09:13 Dose: 1 applic Lorazepam (Ativan) 0.5 mg PO HS PRN PRN Reason: Insomnia Stop: 02/04/18 22:38 Lorazepam (Ativan) 0.5 mg PO Q6 PRN PRN Reason: Agitation Magnesium Hydroxide (Milk Of Magnesia) 30 ml PO HS PRN PRN Reason: Constipation Megestrol Acetate (Megace) 400 mg PO DAILY [facility] Last Admin: 01/24/18 09:17 Dose: 400 mg Metoprolol Succinate (Toprol Xl) 12.5 mg PO DAILY [facility] Last Admin: 01/24/18 09:18 Dose: Not Given Mirtazapine (Remeron) 15 mg PO HS [facility] Last Admin: 01/23/18 21:10 Dose: 15 mg Tamsulosin HCl (Flomax) 0.4 mg PO DAILY@1800 [facility] Last Admin: 01/23/18 17:03 Dose: 0.4 mg Vitamin A (Vitamin A & D Oint Ud Foilpak) 1 ea TOP QSHIFT [facility] Results - Vital Signs Recent Vital Signs: Last Vital Signs Temp 97.1 F L 01/24/18 05:53 Pulse 99 H 01/24/18 09:18 Resp 20 01/24/18 05:53 BP 95/60 L 01/24/18 09:18 Pulse Ox 100 01/23/18 14:46 - Labs Result Diagrams: 01/24/18 06:18 01/24/18 06:18 Labs: Laboratory Results - last 24 hr 01/23/18 01/24/18 01/24/18 22:27 06:18 06:18 WBC 8.3 RBC 4.00 L Hgb 11.3 L Hct 33.9 L MCV 84.6 MCH 28.1 MCHC 33.2 RDW 15.6 H Plt Count 198 MPV 9.7 Neut % (Auto) 67.5 Lymph % (Auto) 18.3 L [place] % (Auto) 9.2 Eos % (Auto) 4.6 H Baso % (Auto) 0.4 Neut # (Auto) 5.6 Lymph # (Auto) 1.5 [place] # (Auto) 0.8 Eos # (Auto) 0.4 Baso # (Auto) 0.0 Sodium Potassium Chloride Carbon Dioxide Anion Gap BUN Creatinine Est GFR ( Amer) Est GFR (Non-Af Amer) Random Glucose Calcium Total Bilirubin AST ALT Alkaline Phosphatase Total Protein Albumin Globulin Albumin/Globulin Ratio Urine Color Noni Urine Clarity Turbid Urine pH 6.0 Ur Specific [place] 1.016 Urine Protein 100 Urine Glucose (UA) Neg Urine Ketones Negative Urine Blood Moderate Urine Nitrate Negative Urine Bilirubin Negative Urine Urobilinogen 0.2-1.0 Ur Leukocyte Esterase Mod Urine RBC (Auto) 249 H Urine WBC Clumps (Auto) Many H Urine Microscopic WBC 4086 H Ur Squamous Epith Cells 6 H Ur Transition Epith Cell 1 Valproic Acid 27.7 L 01/24/18 06:18 WBC RBC Hgb Hct MCV MCH MCHC RDW Plt Count MPV Neut % (Auto) Lymph % (Auto) [place] % (Auto) Eos % (Auto) Baso % (Auto) Neut # (Auto) Lymph # (Auto) [place] # (Auto) Eos # (Auto) Baso # (Auto) Sodium 145 Potassium 3.3 L Chloride 112 H Carbon Dioxide 28 Anion Gap 8 L BUN 23 H Creatinine 1.1 Est GFR ( Amer) > 60 Est GFR (Non-Af Amer) > 60 Random Glucose 80 Calcium 9.0 Total Bilirubin 0.9 AST 21 ALT 18 L Alkaline Phosphatase 55 Total Protein 6.5 Albumin 2.9 L Globulin 3.6 Albumin/Globulin Ratio 0.8 L Urine Color Urine Clarity Urine pH Ur Specific [place] Urine Protein Urine Glucose (UA) Urine Ketones Urine Blood Urine Nitrate Urine Bilirubin Urine Urobilinogen Ur Leukocyte Esterase Urine RBC (Auto) Urine WBC Clumps (Auto) Urine Microscopic WBC Ur Squamous Epith Cells Ur Transition Epith Cell Valproic Acid
[2018-01-24] MEDS ORDERED: Potassium Chloride 20 mEq ER Tab PO ONE (13:05)
[2018-01-24] MEDS: Divalproex 125 mg DR (BID formulation) PO SCH (16:33)
[2018-01-25] MEDS: Divalproex 125 mg Sprinkle Capsule PO SCH (08:17)
[2018-01-25] MEDS: Megestrol Acetate 40 mg/ml Cup PO SCH (08:18)
[2018-01-25] MEDS: Metoprolol Succinate 25 mg XL Tab PO SCH (08:19)
[2018-01-25] MEDS: Bacitracin 500 Units/gm Oint Foilpak UD TOP SCH (08:21)
[2018-01-25] MEDS ORDERED: Potassium Chloride 10 mEq ER Tab PO SCH (09:00)
--- NOTE | 2018-01-25 12:40 | PCM.PYCHPN ---
Psychiatric Progress Note - Psychiatric Progress Note Patient seen today, length of contact: Patient evaluated, case discussed w/ team , chart reviewed Patient Chief Complaint: ok Problems Identified/Issues Discussed: pt evaluated in day room , on wheel chair, partial eye contact, soft under productive speech, oriented to person only , no reported behavioral disturbances , limited insight into illness, denied S/H I DSM 5 Symptoms Update: MAJOR NEUROCOGNITIVE DISORDER Medication Change: No (Increase Depakote) Medical Record Reviewed: Yes Mental Status Examination - Cognitive Function Orientation: Person, Place, Situation, Time Memory: Impaired Attention: Poor Concentration: Poor - Mood Mood: Neutral - Affect Affect: Constricted - Speech Speech: Appropriate - Formal Thought Process Formal Thought Process: Loosening of associations Psychotic Thoughts and Behaviors: NON ELICITED - Suicidal Ideation Suicidal Ideation: No - Homicidal Ideation Homicidal Ideation: No Goal/Treatment Plan - Goal/Treatment Plan Need for Continued Stay: Remain at risks for inpatient hospitalization, Discharge may exacerbated symptoms, Severe functional impairment Progress Toward Problem(s) and Goals/Treatment Plan: continue with depakote and remeron Estimated Date of D/C: 01/28/18
[2018-01-25] MEDS: Divalproex 125 mg DR (BID formulation) PO SCH (17:08)
[2018-01-26] MEDS: Metoprolol Succinate 25 mg XL Tab PO SCH (08:25)
[2018-01-26] MEDS: Divalproex 125 mg Sprinkle Capsule PO SCH (08:26)
[2018-01-26] MEDS: Megestrol Acetate 40 mg/ml Cup PO SCH (08:26)
[2018-01-26] MEDS: Bacitracin 500 Units/gm Oint Foilpak UD TOP SCH (08:27)
--- NOTE | 2018-01-26 12:35 | PCM.PYCHPN ---
Psychiatric Progress Note - Psychiatric Progress Note Patient seen today, length of contact: Patient evaluated, case discussed w/ team , chart reviewed Patient Chief Complaint: I am feeling good Problems Identified/Issues Discussed: pt evaluated in day room , on wheel chair, reported mood fine, appropriate affect, no reported side effects of medications, slightly improved appetite, no changes in sleep , no reported behavioral disturbances, limited insight into illness, denied S/H I DSM 5 Symptoms Update: bipolar disorder major neurocognitive disorder Medication Change: No Medical Record Reviewed: Yes Mental Status Examination - Cognitive Function Orientation: Person, Place, Situation, Time Memory: Impaired Attention: Poor Concentration: Poor Fund of Knowledge: Poor Decription of patient's judgement and insights: poor insight and judgment - Mood Mood: Neutral - Affect Affect: Constricted - Speech Speech: Soft - Formal Thought Process Formal Thought Process: Loosening of associations Psychotic Thoughts and Behaviors: pt denied perceptual disturbances, non elicited - Suicidal Ideation Suicidal Ideation: No - Homicidal Ideation Homicidal Ideation: No Goal/Treatment Plan - Goal/Treatment Plan Need for Continued Stay: Remain at risks for inpatient hospitalization, Discharge may exacerbated symptoms, Severe functional impairment Progress Toward Problem(s) and Goals/Treatment Plan: continue with depakote and remeron group and supportive therapy disposition planning Estimated Date of D/C: 01/28/18
[2018-01-26] MEDS: Divalproex 125 mg DR (BID formulation) PO SCH (16:26)
--- NOTE | 2018-01-27 08:32 | PCM.PYCHPN ---
Psychiatric Progress Note - Psychiatric Progress Note Patient seen today, length of contact: Patient evaluated, case discussed w/ team , chart reviewed Patient Chief Complaint: Decreased functioning/ refusal to eat and take medications Problems Identified/Issues Discussed: Patient is calm and pleasant, but he continues to have poor PO intake. He has poor insight/judgment into his lack of self care, likely due to cognitive impairment. He denies acute SI. Diagnostic Results: VPA 27.7 on 01/24/18 Medication Change: Yes (Increase Remeron to 22.5 mg PO HS) Medical Record Reviewed: Yes Consults ordered or reviewed: Medicine/ PT/OT/ Dietitian/ Psychology consult Mental Status Examination - Cognitive Function Orientation: Person, Place, Situation, Time Memory: Impaired Attention: Poor Concentration: Poor Fund of Knowledge: Poor Decription of patient's judgement and insights: Poor I/J - Mood Mood: Neutral - Affect Affect: Constricted - Speech Speech: Soft - Formal Thought Process Formal Thought Process: Loosening of associations Psychotic Thoughts and Behaviors: Denies AH/VH/paranoia - Suicidal Ideation Suicidal Ideation: No - Homicidal Ideation Homicidal Ideation: No Goal/Treatment Plan - Goal/Treatment Plan Need for Continued Stay: Remain at risks for inpatient hospitalization, Discharge may exacerbated symptoms, Severe functional impairment Progress Toward Problem(s) and Goals/Treatment Plan: Bipolar Disorder; Dementia -Individual and group therapy -Increase Remeron to 22.5 mg PO HS -Continue Depakote 250 mg PO Daily/ 375 mg PO Daily@1700; VPA 27.7 on 01/24/18 -Pt on Cipro for UTI -Medicine consult -Continue Megace -Dietary consult -Psychology consult -PT/OT -Disposition planning Estimated Date of D/C: 01/31/18
[2018-01-27] MEDS: Bacitracin 500 Units/gm Oint Foilpak UD TOP SCH (08:37)
[2018-01-27] MEDS: Divalproex 125 mg Sprinkle Capsule PO SCH (08:37)
[2018-01-27] MEDS: Megestrol Acetate 40 mg/ml Cup PO SCH (08:38)
[2018-01-27] MEDS: Metoprolol Succinate 25 mg XL Tab PO SCH (08:38)
--- NOTE | 2018-01-27 13:34 | CP.PCM.CON ---
History of Present Illness - History of Present Illness History of Present Illness: Consult note for Dr. Day: 73 yo male patient, seen and evaluated for right foot ulceration. Patient states that his toes hurt. Unable to obtain full medical history at this time from patient. Patient denies N/V/F/SOB/CP. PMH: CHF, asthma ALL: NKDA Review of Systems - Review of Systems Review of Systems: As per HPI Past Patient History - Infectious Disease Hx of Infectious Diseases: None - Tetanus Immunizations Tetanus Immunization: Unknown - Past Medical History & Family History Past Medical History?: Yes - Past Social History Alcohol: None Drugs: Denies - CARDIAC Hx Congestive Heart Failure: Yes Hx Hypercholesterolemia: Yes Hx Hypertension: Yes - PULMONARY Hx Asthma: Yes Hx Chronic Obstructive Pulmonary Disease (COPD): Yes - HEENT Hx HEENT Problems: Yes Hx Cataracts: Yes Other/Comment: hard of hearing - RENAL Hx Chronic Kidney Disease: Yes (renal insufficiency) - PSYCHIATRIC Hx Anxiety: Yes Hx Bipolar Disorder: Yes Hx Depression: Yes Hx Schizophrenia: Yes - SURGICAL HISTORY Hx Tonsillectomy: Yes - ANESTHESIA Hx Anesthesia: Yes Hx Anesthesia Reactions: No Hx Malignant Hyperthermia: No Meds Allergies/Adverse Reactions: Allergies Allergy/AdvReac Type Severity Reaction Status Date / Time No Known Allergies Allergy Verified 11/17/17 14:22 - Medications Medications: Current Medications Acetaminophen (Tylenol 325mg Tab) 650 mg PO Q4 PRN PRN Reason: Pain, moderate (4-7) Al Hydrox/Mg Hydrox/Simethicone (Maalox Plus 30 Ml) 30 ml PO Q4 PRN PRN Reason: Dyspepsia Aspirin (Ecotrin) 81 mg PO DAILY [facility] Last Admin: 01/27/18 08:38 Dose: 81 mg Bacitracin (Bacitracin) 1 ea TOP DAILY [facility] Last Admin: 01/27/18 08:37 Dose: 1 ea Bismuth Subsalicylate (Pepto-Bismol) 524 mg PO Q4 PRN PRN Reason: Diarrhea Ciprofloxacin (Cipro) 250 mg PO Q12 [facility] PRN Reason: Protocol Last Admin: 01/27/18 08:38 Dose: 250 mg Divalproex Sodium (Depakote Sprinkles) 250 mg PO DAILY [facility] Last Admin: 01/27/18 08:37 Dose: 250 mg Divalproex Sodium (Depakote Dr(*Bid*)) 375 mg PO DAILY@1700 [facility] Last Admin: 01/26/18 16:26 Dose: 375 mg Finasteride (Proscar) 5 mg PO DAILY@1800 [facility] Last Admin: 01/26/18 17:49 Dose: 5 mg Furosemide (Lasix) 20 mg PO DAILY [facility] Last Admin: 01/24/18 11:41 Dose: 20 mg Lactic Acid (Lac-Hydrin 12% Lotion (225 G)) 1 applic TOP TID [facility] Last Admin: 01/27/18 12:19 Dose: 1 applic Lorazepam (Ativan) 0.5 mg PO HS PRN PRN Reason: Insomnia Stop: 02/04/18 22:38 Lorazepam (Ativan) 0.5 mg PO Q6 PRN PRN Reason: Agitation Magnesium Hydroxide (Milk Of Magnesia) 30 ml PO HS PRN PRN Reason: Constipation Megestrol Acetate (Megace) 400 mg PO DAILY [facility] Last Admin: 01/27/18 08:38 Dose: 400 mg Metoprolol Succinate (Toprol Xl) 12.5 mg PO DAILY [facility] Last Admin: 01/27/18 08:38 Dose: 12.5 mg Mirtazapine (Remeron) 22.5 mg PO HS [facility] Tamsulosin HCl (Flomax) 0.4 mg PO DAILY@1800 [facility] Last Admin: 01/26/18 17:49 Dose: 0.4 mg Vitamin A (Vitamin A & D Oint Ud Foilpak) 1 ea TOP QSHIFT [facility] Physical Exam - Constitutional Appears: Well, Non-toxic, No Acute Distress - Extremities Exam Additional comments: Vascular: DP/PT 1/4 bilaterally, CFT >3 seconds to all digits, hyperpigmentation noted to bilateral lower extremities, venous stasis noted b/ l. Edema noted to b/l lower extremities with +2 edema noted to right second metatarsal and hallux Ortho: HAV deformity bilaterally, unable to assess MMT Neuro: Gross sensation intact, protective sensation unable to assess bilaterally. Derm: Ulceration noted to dorsal aspect of right second digit measuring approximately 1x1x.01 cm, no probe to bone, no drainage, no tracking, no undermining. Cellulitis extending from distal apsect of second digit to base of proximal phalanx. Friable skin noted to dorsal medial aspect of right hallux, interdigital maceration noted to all interspaces bilaterally. Thickened, hypertrophic nails x10. - Neurological Exam Neurological exam: Alert - Psychiatric Exam Psychiatric exam: Normal Affect, Normal Mood Results - Vital Signs Recent Vital Signs: Last Vital Signs Temp 96.9 F L 01/27/18 06:00 Pulse 99 H 01/27/18 08:38 Resp 19 01/27/18 06:00 BP 130/72 01/27/18 08:38 Pulse Ox 100 01/23/18 14:46 - Labs Result Diagrams: 01/24/18 06:18 01/24/18 06:18 Assessment & Plan - Assessment and Plan (Free Text) Assessment: 73 yo male patient, seen and evaluated for right second digit ulceration and cellulitis Plan: Patient seen and evaluated Patient plan discussed with Dr. Barb Sevilla foot and ankle x-ray's; ordered ANGELICA/PVRs; ordered Wound dressed with DSD Thank you for the consult and allowing us to partake in the care of this patient - Date & Time Date: 01/27/18 Time: 13:49
--- NOTE | 2018-01-27 17:23 | CP.PCM.PN ---
Subjective - Date & Time of Evaluation Date of Evaluation: 01/25/18 Time of Evaluation: 10:00 - Subjective Subjective: Patient remain stable BP is within normal range. Has no chest pain or SOB. Objective - Vital Signs/Intake and Output Vital Signs (last 24 hours): Temp Pulse Resp BP Pulse Ox 97 F L 78 18 110/63 100 01/27/18 15:48 01/27/18 15:48 01/27/18 15:48 01/27/18 15:48 01/23/18 14:46 - Medications Medications: Current Medications Acetaminophen (Tylenol 325mg Tab) 650 mg PO Q4 PRN PRN Reason: Pain, moderate (4-7) Al Hydrox/Mg Hydrox/Simethicone (Maalox Plus 30 Ml) 30 ml PO Q4 PRN PRN Reason: Dyspepsia Aspirin (Ecotrin) 81 mg PO DAILY [facility] Last Admin: 01/27/18 08:38 Dose: 81 mg Bacitracin (Bacitracin) 1 ea TOP DAILY [facility] Last Admin: 01/27/18 08:37 Dose: 1 ea Bismuth Subsalicylate (Pepto-Bismol) 524 mg PO Q4 PRN PRN Reason: Diarrhea Ciprofloxacin (Cipro) 250 mg PO Q12 [facility] PRN Reason: Protocol Last Admin: 01/27/18 08:38 Dose: 250 mg Divalproex Sodium (Depakote Sprinkles) 250 mg PO DAILY [facility] Last Admin: 01/27/18 08:37 Dose: 250 mg Divalproex Sodium (Depakote Dr(*Bid*)) 375 mg PO DAILY@1700 [facility] Last Admin: 01/26/18 16:26 Dose: 375 mg Finasteride (Proscar) 5 mg PO DAILY@1800 [facility] Last Admin: 01/26/18 17:49 Dose: 5 mg Furosemide (Lasix) 20 mg PO DAILY [facility] Last Admin: 01/24/18 11:41 Dose: 20 mg Lactic Acid (Lac-Hydrin 12% Lotion (225 G)) 1 applic TOP TID [facility] Last Admin: 01/27/18 16:51 Dose: 1 applic Lorazepam (Ativan) 0.5 mg PO HS PRN PRN Reason: Insomnia Stop: 02/04/18 22:38 Lorazepam (Ativan) 0.5 mg PO Q6 PRN PRN Reason: Agitation Magnesium Hydroxide (Milk Of Magnesia) 30 ml PO HS PRN PRN Reason: Constipation Megestrol Acetate (Megace) 400 mg PO DAILY [facility] Last Admin: 01/27/18 08:38 Dose: 400 mg Metoprolol Succinate (Toprol Xl) 12.5 mg PO DAILY [facility] Last Admin: 01/27/18 08:38 Dose: 12.5 mg Mirtazapine (Remeron) 22.5 mg PO [facility] Tamsulosin HCl (Flomax) 0.4 mg PO DAILY@1800 [facility] Last Admin: 01/26/18 17:49 Dose: 0.4 mg Vitamin A (Vitamin A & D Oint Ud Foilpak) 1 ea TOP QSHIFT [facility] - Labs Labs: 01/24/18 06:18 01/24/18 06:18 - Head Exam Head Exam: NORMAL INSPECTION - Eye Exam Eye Exam: Normal appearance - ENT Exam ENT Exam: Mucous Membranes Moist - Respiratory Exam Respiratory Exam: Clear to Ausculation Bilateral - GI/Abdominal Exam GI & Abdominal Exam: Normal Bowel Sounds - Neurological Exam Neurological Exam: Awake, Oriented x3 - Psychiatric Exam Psychiatric exam: Normal Mood Assessment and Plan (1) Depressive episode Status: Acute (2) BPH (benign prostatic hyperplasia) Status: Acute (3) COPD (chronic obstructive pulmonary disease) Status: Acute (4) Hypertension Status: Acute - Assessment and Plan (Free Text) Plan: Cont meds Cont tx Follow up labs.
[2018-01-27] MEDS: Divalproex 125 mg DR (BID formulation) PO SCH (17:43)
[2018-01-28] MEDS: Divalproex 125 mg Sprinkle Capsule PO SCH ×2 (08:48→17:17)
[2018-01-28] MEDS: Bacitracin 500 Units/gm Oint Foilpak UD TOP SCH (08:49)
[2018-01-28] MEDS: Megestrol Acetate 40 mg/ml Cup PO SCH ×2 (08:49→09:04)
[2018-01-28] MEDS: Metoprolol Succinate 25 mg XL Tab PO SCH (09:04)
--- NOTE | 2018-01-28 09:23 | PCM.PYCHPN ---
Psychiatric Progress Note - Psychiatric Progress Note Patient seen today, length of contact: Patient evaluated, case discussed w/ team , chart reviewed Patient Chief Complaint: Decreased functioning/ refusal to eat and take medications Problems Identified/Issues Discussed: Patient continues to have poor PO intake. He has poor insight/judgment into his lack of self care. He is calm and pleasant, denies acutely feeling depressed or anxious. Diagnostic Results: VPA 27.7 on 01/24/18 Medication Change: No Medical Record Reviewed: Yes Consults ordered or reviewed: Medicine/ PT/OT/ Dietitian/ Psychology consult Mental Status Examination - Cognitive Function Orientation: Person, Place, Situation, Time Memory: Impaired Attention: Poor Concentration: Poor Fund of Knowledge: Poor Decription of patient's judgement and insights: Poor I/J - Mood Mood: Neutral - Affect Affect: Constricted - Speech Speech: Soft - Formal Thought Process Formal Thought Process: Loosening of associations Psychotic Thoughts and Behaviors: Denies AH/VH/paranoia - Suicidal Ideation Suicidal Ideation: No - Homicidal Ideation Homicidal Ideation: No Goal/Treatment Plan - Goal/Treatment Plan Need for Continued Stay: Remain at risks for inpatient hospitalization, Discharge may exacerbated symptoms, Severe functional impairment Progress Toward Problem(s) and Goals/Treatment Plan: Bipolar Disorder; Dementia -Monitor caloric intake -Individual and group therapy -Continue Remeron 22.5 mg PO HS -Continue Depakote 250 mg PO Daily/ 375 mg PO Daily@1700; VPA 27.7 on 01/24/18 -Pt on Cipro for UTI -Medicine consult -Continue Megace -Dietary consult -Psychology consult -PT/OT -Disposition planning Estimated Date of D/C: 01/31/18
--- NOTE | 2018-01-28 10:24 | CP.PCM.PN ---
Subjective - Date & Time of Evaluation Date of Evaluation: 01/28/18 Time of Evaluation: 10:22 - Subjective Subjective: Progress note for Dr. Day: 73 yo male patient, seen and evaluated for right foot ulceration. Patient states that his toes hurt and he has kept his dressing dry. Unable to obtain full medical history at this time from patient. Patient denies N/V/F/SOB/CP. Objective - Vital Signs/Intake and Output Vital Signs (last 24 hours): Temp Pulse Resp BP Pulse Ox 97.6 F 114 H 19 94/63 L 100 01/28/18 06:00 01/28/18 09:04 01/28/18 06:00 01/28/18 09:04 01/23/18 14:46 - Medications Medications: Current Medications Acetaminophen (Tylenol 325mg Tab) 650 mg PO Q4 PRN PRN Reason: Pain, moderate (4-7) Al Hydrox/Mg Hydrox/Simethicone (Maalox Plus 30 Ml) 30 ml PO Q4 PRN PRN Reason: Dyspepsia Aspirin (Ecotrin) 81 mg PO DAILY [facility] Last Admin: 01/28/18 08:49 Dose: 81 mg Bacitracin (Bacitracin) 1 ea TOP DAILY [facility] Last Admin: 01/28/18 08:49 Dose: 1 ea Bismuth Subsalicylate (Pepto-Bismol) 524 mg PO Q4 PRN PRN Reason: Diarrhea Ciprofloxacin (Cipro) 500 mg PO Q12 [facility] PRN Reason: Protocol Last Admin: 01/28/18 08:48 Dose: 500 mg Divalproex Sodium (Depakote Sprinkles) 250 mg PO DAILY [facility] Last Admin: 01/28/18 08:48 Dose: 250 mg Divalproex Sodium (Depakote Dr(*Bid*)) 375 mg PO DAILY@1700 [facility] Last Admin: 01/27/18 17:43 Dose: 375 mg Finasteride (Proscar) 5 mg PO DAILY@1800 [facility] Last Admin: 01/27/18 17:43 Dose: 5 mg Furosemide (Lasix) 20 mg PO DAILY [facility] Last Admin: 01/24/18 11:41 Dose: 20 mg Lactic Acid (Lac-Hydrin 12% Lotion (225 G)) 1 applic TOP TID [facility] Last Admin: 01/28/18 08:48 Dose: 1 applic Lorazepam (Ativan) 0.5 mg PO HS PRN PRN Reason: Insomnia Stop: 02/04/18 22:38 Lorazepam (Ativan) 0.5 mg PO Q6 PRN PRN Reason: Agitation Magnesium Hydroxide (Milk Of Magnesia) 30 ml PO HS PRN PRN Reason: Constipation Megestrol Acetate (Megace) 400 mg PO DAILY [facility] Last Admin: 01/28/18 09:04 Dose: Not Given Metoprolol Succinate (Toprol Xl) 12.5 mg PO DAILY [facility] Last Admin: 01/28/18 09:04 Dose: Not Given Mirtazapine (Remeron) 22.5 mg PO HS [facility] Last Admin: 01/27/18 21:10 Dose: 22.5 mg Tamsulosin HCl (Flomax) 0.4 mg PO DAILY@1800 [facility] Last Admin: 01/27/18 17:44 Dose: 0.4 mg Vitamin A (Vitamin A & D Oint Ud Foilpak) 1 ea TOP QSHIFT [facility] - Labs Labs: 01/24/18 06:18 01/24/18 06:18 - Constitutional Appears: Well, Non-toxic, No Acute Distress - Extremities Exam Additional comments: Vascular: DP/PT nonpalpable right foot, CFT <3 seconds to all digits, hyperpigmentation noted to bilateral lower extremities, venous stasis noted b/ l. Edema noted to b/l lower extremities with +2 edema noted to right second metatarsal and hallux Ortho: HAV deformity bilaterally, unable to assess MMT Neuro: Gross sensation intact, protective sensation unable to assess bilaterally. Derm: Ulceration noted to dorsal aspect of right second digit measuring approximately 1x1x.01 cm, no probe to bone, no drainage, no tracking, no undermining. Cellulitis extending from distal apsect of second digit to base of proximal phalanx. Friable skin noted to dorsal medial aspect of right hallux, interdigital maceration noted to all interspaces bilaterally. Thickened, hypertrophic nails x10. - Neurological Exam Neurological Exam: Alert, Awake - Psychiatric Exam Psychiatric exam: Normal Affect, Normal Mood Assessment and Plan - Assessment and Plan (Free Text) Assessment: 73 yo male patient, seen and evaluated for right second digit ulceration and cellulitis Plan: Patient seen and evaluated with Dr. Barb Sevilla foot and ankle x-ray's; ordered ANGELICA/PVRs; ordered Wound dressed with DSD and mupirocin Unable to assess history of wounds with patient Podiatry will continue to follow while in house
[2018-01-29 07:21] LABS: BLOOD UREA NITROGEN 23 mg/dl (9-20); GFR NON-AFRICAN AMERICAN > 60
--- NOTE | 2018-01-29 08:41 | CP.PCM.PN ---
Subjective - Date & Time of Evaluation Date of Evaluation: 01/29/18 Time of Evaluation: 08:39 - Subjective Subjective: Progress note for Dr. Day: 73 yo male patient, seen and evaluated for right foot ulceration. Patient states that his toes hurt and he has kept his dressing dry. States nurses have put cream on right leg and toes. Unable to obtain full medical history at this time from patient. Patient denies N/V/F/SOB/CP. Objective - Vital Signs/Intake and Output Vital Signs (last 24 hours): Temp Pulse Resp BP Pulse Ox 97.8 F 100 H 18 99/68 L 100 01/29/18 06:00 01/29/18 06:00 01/29/18 06:00 01/29/18 06:00 01/23/18 14:46 - Medications Medications: Current Medications Acetaminophen (Tylenol 325mg Tab) 650 mg PO Q4 PRN PRN Reason: Pain, moderate (4-7) Al Hydrox/Mg Hydrox/Simethicone (Maalox Plus 30 Ml) 30 ml PO Q4 PRN PRN Reason: Dyspepsia Aspirin (Ecotrin) 81 mg PO DAILY [facility] Last Admin: 01/28/18 08:49 Dose: 81 mg Bacitracin (Bacitracin) 1 ea TOP DAILY [facility] Last Admin: 01/28/18 08:49 Dose: 1 ea Bismuth Subsalicylate (Pepto-Bismol) 524 mg PO Q4 PRN PRN Reason: Diarrhea Ciprofloxacin (Cipro) 500 mg PO Q12 [facility] PRN Reason: Protocol Last Admin: 01/28/18 21:05 Dose: 500 mg Divalproex Sodium (Depakote Sprinkles) 250 mg PO DAILY [facility] Last Admin: 01/28/18 08:48 Dose: 250 mg Divalproex Sodium (Depakote Sprinkles) 375 mg PO DAILY@1700 [facility] Last Admin: 01/28/18 17:17 Dose: 375 mg Finasteride (Proscar) 5 mg PO DAILY@1800 [facility] Last Admin: 01/28/18 18:12 Dose: 5 mg Furosemide (Lasix) 20 mg PO DAILY [facility] Last Admin: 01/24/18 11:41 Dose: 20 mg Lactic Acid (Lac-Hydrin 12% Lotion (225 G)) 1 applic TOP TID [facility] Last Admin: 01/28/18 17:18 Dose: 1 applic Lorazepam (Ativan) 0.5 mg PO HS PRN PRN Reason: Insomnia Stop: 02/04/18 22:38 Lorazepam (Ativan) 0.5 mg PO Q6 PRN PRN Reason: Agitation Magnesium Hydroxide (Milk Of Magnesia) 30 ml PO HS PRN PRN Reason: Constipation Megestrol Acetate (Megace) 400 mg PO DAILY [facility] Last Admin: 01/28/18 09:04 Dose: Not Given Metoprolol Succinate (Toprol Xl) 12.5 mg PO DAILY [facility] Last Admin: 01/28/18 09:04 Dose: Not Given Mirtazapine (Remeron) 22.5 mg PO HS [facility] Last Admin: 01/28/18 21:05 Dose: 22.5 mg Tamsulosin HCl (Flomax) 0.4 mg PO DAILY@1800 [facility] Last Admin: 01/28/18 18:12 Dose: 0.4 mg Vitamin A (Vitamin A & D Oint Ud Foilpak) 1 ea TOP QSHIFT [facility] - Labs Labs: 01/24/18 06:18 01/29/18 06:10 - Constitutional Appears: Well, Non-toxic, No Acute Distress - Extremities Exam Additional comments: Vascular: DP/PT nonpalpable right foot, CFT <3 seconds to all digits, hyperpigmentation noted to bilateral lower extremities, venous stasis noted b/ l. Edema noted to b/l lower extremities with +2 edema noted to right second metatarsal and hallux Ortho: HAV deformity bilaterally, unable to assess MMT Neuro: Gross sensation intact, protective sensation unable to assess bilaterally. Derm: Ulceration noted to dorsal aspect of right second digit measuring approximately 1x1x.01 cm, no probe to bone, no drainage, no tracking, no undermining. Cellulitis extending from distal apsect of second digit to base of proximal phalanx. Friable skin noted to dorsal medial aspect of right hallux, interdigital maceration noted to all interspaces bilaterally. Thickened, hypertrophic nails x10. - Neurological Exam Neurological Exam: Alert, Awake - Psychiatric Exam Psychiatric exam: Normal Affect, Normal Mood Assessment and Plan - Assessment and Plan (Free Text) Assessment: 73 yo male patient, seen and evaluated for right second digit ulceration and cellulitis Plan: Patient seen and evaluated Discussed in detail with Dr. Barb Sevilla foot and ankle x-ray's; taken but not read (no significant findings per me) ANGELICA/PVRs; ordered Wound dressed with betadine and DSD as maceration present ID consulted, cellulitis not resolving - recs appreciated Unable to assess history of wounds with patient Podiatry will continue to follow while in house
--- NOTE | 2018-01-29 08:45 | PCM.PYCHPN ---
Psychiatric Progress Note - Psychiatric Progress Note Patient seen today, length of contact: Patient evaluated, case discussed w/ team , chart reviewed Patient Chief Complaint: Decreased functioning/ refusal to eat and take medications Problems Identified/Issues Discussed: Patient is starting to have improved PO intake. As per his advanced directive, patient does not want G tube placement. He is irritable at times, but does not have any behavioral issues. He continues to have overall poor self care due to chronic cognitive deficits. Diagnostic Results: VPA 27.7 on 01/24/18 Medication Change: No Medical Record Reviewed: Yes Consults ordered or reviewed: Medicine/ PT/OT/ Dietitian/ Psychology consult Mental Status Examination - Cognitive Function Orientation: Person, Place, Situation, Time Memory: Impaired Attention: Poor Concentration: Poor Fund of Knowledge: Poor Decription of patient's judgement and insights: Poor I/J - Mood Mood: Neutral - Affect Affect: Constricted - Speech Speech: Soft - Formal Thought Process Formal Thought Process: Loosening of associations Psychotic Thoughts and Behaviors: Denies AH/VH/paranoia - Suicidal Ideation Suicidal Ideation: No - Homicidal Ideation Homicidal Ideation: No Goal/Treatment Plan - Goal/Treatment Plan Need for Continued Stay: Remain at risks for inpatient hospitalization, Discharge may exacerbated symptoms, Severe functional impairment Progress Toward Problem(s) and Goals/Treatment Plan: Bipolar Disorder; Dementia -Monitor caloric intake -Individual and group therapy -Continue Remeron 22.5 mg PO HS -Continue Depakote 250 mg PO Daily/ 375 mg PO Daily@1700; VPA 27.7 on 01/24/18 -Pt on Cipro for UTI -Medicine consult -Continue Megace -Dietary consult -Podiatry consult -Psychology consult -PT/OT -Disposition planning Estimated Date of D/C: 01/31/18
[2018-01-29] MEDS: Bacitracin 500 Units/gm Oint Foilpak UD TOP SCH (09:08)
[2018-01-29] MEDS: Megestrol Acetate 40 mg/ml Cup PO SCH ×2 (09:09→09:22)
[2018-01-29] MEDS: Divalproex 125 mg Sprinkle Capsule PO SCH ×3 (09:09→17:59)
[2018-01-29] MEDS: Metoprolol Succinate 25 mg XL Tab PO SCH (09:21)
--- NOTE | 2018-01-29 12:16 | PCM.BM ---
Treatment Plan Problems - Problems identified on initial assessmt less than optimal nutrition Date Initiated: 01/21/18 Time Initiated: 23:09 Assessment reference: NA Status: Active medication nonadherence Date Initiated: 01/21/18 Time Initiated: 23:10 Assessment reference: NA Status: Active Treatment assets and liabiliti Patient Assests: negotiates basic needs Patient Liabilities: physical pain, medical problems, auditory impairment - Milieu Protocol Maintain good personal hygiene: daily Encourage regular showers, daily Remind patient to perform daily oral care, daily Assist patient to perform ADL's Maintain personal safety: every shift Educate patient to report safety concerns to staff, every shift Monitor environment for contraband/sharps Medication safety: Monitor for expected outcome, potential side effects: every shift, Assess barriers to learning: every shift, Assess readiness for medication education: every shift Milieu Narrative: Bipolar Disorder; Dementia -Monitor caloric intake -Individual and group therapy -Continue Remeron 22.5 mg PO HS -Continue Depakote 250 mg PO Daily/ 375 mg PO Daily@1700; VPA 27.7 on 01/24/18 -Pt on Cipro for UTI -Medicine consult -Continue Megace -Dietary consult -Podiatry consult -Psychology consult -PT/OT -Disposition planning Family Contact Family involvement: No known Family/SO Family contact: Other Family contact name: Luis - friend Family contacted how many times per week?: 1 Family contact comment: [phone] or [phone] - Outside Agency [facility] involvment: Information-sharing Agency contact number: [phone] - Goals for Treatment Patient goals for treatment: Pt to be encouraged to attend activity and clinical groups 3-5x per week to identify at least 2 contributing factors to depression and suicide attempt. Psycho-education to be provided to patient/ family regarding benefits of medications and treatment adherence. Pt to be encouraged to participate in group milieu to develop effective coping skills to reduce depression and free of suicide ideation. Coordinate discharge resource needs by providing referral for psychiatric treatment follow up in the community. Discharge/Continuing Care - Education Needs Education Needs: Patient Medication, Patient Diagnosis/Disease Process, Patient Coping Skills, Patient Placement options, Patient Community resources, Patient Uses of Medical Equipment, Patient Health Practices/Safety, Patient Personal Hygiene/Grooming, Patient Aftercare Safety Plan - Discharge Discharge Criteria: Tolerates medication w/o severe side effects, Free of Suicidal thoughts, Ability to care for self, Reduction of target symptoms Discharge to:: Long Term - Additional Comments 01/22/18 11:51 Pt seen and discussed in team meeting. Reason for hospitalization reviewed and discussed. Pt reported he was referred to the hospital because 'I had an infection of the bladder." Pt reported his appetite is "a little better." Pt reported he likes t drink Ensure Clear. Pt assessed for suicide ideation. Pt denied making passive wishes. Pt reported he wishes to live. Pt reported refusing his medications at the alf, but unable to state why. Pt reported his memory is "so so." Pt's social and medical issues reviewed. Pt's medications reviewed and discussed with pt. Pt's tx plan reviewed and pt verbalized agreement. SW to continue to follow case. - Treatment Team Participation Patient/Family/SO Statement: Bipolar Disorder; Dementia -Monitor caloric intake -Individual and group therapy -Continue Remeron 22.5 mg PO HS -Continue Depakote 250 mg PO Daily/ 375 mg PO Daily@1700; VPA 27.7 on 01/24/18 -Pt on Cipro for UTI -Medicine consult -Continue Megace -Dietary consult -Podiatry consult -Psychology consult -PT/OT -Disposition planning Discussed with Family/SO: No Was Patient/Family/SO present at Treatment Team Meeting: Yes Treatment Plan Review Patient participation: Yes Family/SO/Caregiver participation: No Additional Comments: Pt seen and discussed in team meeting. Pt's progress and bx on the unit reviewed and discussed. Pt's appetite remains poor; however, it has improved since admission. Pt is consuming more liquids. Pt requires frequent and constant encouragement and motivation to eat his meals and also take his medications. Pt is sporadically compliant with RX. Pt's memory is poor. Pt presents as forgetful at time. Pt reported mood as "I'm in a bad mood." Pt appeared to be more irritable and agitated. Prior to team meeting, pt was observed to be yelling and screaming in the dining room. Pt is demanding in the context that he wants his needs ot be met right away. Pt's medications reviewed. Pt provided with psycho-education regarding importance of eating and taking his medications. Pt also advised not to scream or yell. Pt verbalized understanding of same. Pt advised that he will be returning to [facility] once stable. Pt verbalized agreement. - Problem less than optimal nutrition Date Initiated: 01/21/18 Time Initiated: 23:09 Progress toward outcomes: unchanged medication nonadherence Date Initiated: 01/21/18 Time Initiated: 23:10 Progress toward outcomes: improved (Pt is sporadically compliant with medications.) - Discharge / Continuing Care Discharge to:: Long Term Behavioral Health Services: Outpatient therapy, Home health care, Residential treatment, Other (Medication Management) Health Needs: Follow up care/test, Doctor appointments, Special equipment, Nutritional, Medications/Rx, Educational, Recreational/Social
--- NOTE | 2018-01-29 13:31 | CP.PCM.CON ---
History of Present Illness - History of Present Illness History of Present Illness: 73 year old male with history of pneumonia, NSTEMI, chronic kidney disease, and hypertension brought to the ED by half-way for psychiatric evaluation. Referred for ID eval of cellulitis right foot c/o pain denies fever poor historian - Medical History PMH: Anxiety, Asthma, Benign Prostatic Hyperplasia (bladder problem), Bipolar Disorder, CHF, COPD, Depression, HTN, Hypercholesterolemia, Hyperlipidemia, Chronic Kidney Disease (renal insufficiency), Schizophrenia Review of Systems - Review of Systems All systems: reviewed and no additional remarkable complaints except - Constitutional Constitutional: As Per HPI - EENT Eyes: absent: As Per HPI, Blind Spots, Blurred Vision, Change in Vision, Decreased Night Vision, Diplopia, Discharge, Dry Eye, Exophthalmos, Floaters, Irritation, Itchy Eyes, Loss of Peripheral Vision, Pain, Photophobia, Requires Corrective Lenses, Sees Flashes, Spots in Vision, Tunnel Vision, Other Visual Disturbances, Loss of Vision, Other Ears: absent: As Per HPI, Decreased Hearing, Ear Discharge, Ear Pain, Tinnitus, Abnormal Hearing, Disequilibrium, Dizziness, Other Nose/Mouth/Throat: absent: As Per HPI, Epistaxis, Nasal Congestion, Nasal Discharge, Nasal Obstruction, Nasal Trauma, Nose Pain, Post Nasal Drip, Sinus Pain, Sinus Pressure, Bleeding Gums, Change in Voice, Dental Pain, Dry Mouth, Dysphagia, Halitosis, Hoarsness, Lip Swelling, Mouth Lesions, Mouth Pain, Odynophagia, Sore Throat, Throat Swelling, Tongue Swelling, Facial Pain, Neck Pain, Neck Mass, Other - Cardiovascular Cardiovascular: absent: As Per HPI, Acrocyanosis, Chest Pain, Chest Pain at Rest , Chest Pain with Activity, Claudication, Diaphoresis, Dyspnea, Dyspnea on Exertion, Edema, Irregular Heart Rhythm, Pain Radiating to Arm/Neck/Jaw, Leg Edema, Leg Ulcers, Lightheadedness, Orthopnea, Palpitations, Paroxysmal Nocturnal Dyspnea, Pedal Edema, Radiating Pain, Rapid Heart Rate, Slow Heart Rate, Syncope, Other - Respiratory Respiratory: absent: As Per HPI, Cough, Dyspnea, Hemoptysis, Dyspnea on Exertion , Wheezing, Snoring, Stridor, Pain on Inspiration, Chest Congestion, Excessive Mucous Production, Change in Mucous Color, Pain with Coughing, Other - Gastrointestinal Gastrointestinal: absent: As Per HPI, Abdominal Pain, Belching, Bloating, Change in Bowel Habits, Change in Stool Character, Coffee Ground Emesis, Constipation, Cramping, Diarrhea, Dyspepsia, Dysphagia, Early Satiety, Excessive Flatus, Fecal Incontinence, Heartburn, Hematemesis, Hematochezia, Loose Stools, Melena, Nausea, Odynophagia, Temesmus, Vomiting, Other - Genitourinary Genitourinary: absent: As Per HPI, Change in Urinary Stream, Difficulty Urinating, Dysuria, Flank Pain, Hematuria, Pyuria, Nocturia, Urinary Incontinence, Urinary Frequency, Urinary Hesitance, Urinary Urgency, Voiding Freq/Small Amts, Freq UTI, Hx Renal/Bladder Calculi, Hx /Renal Surgery, Bladder Distension, Other - Musculoskeletal Musculoskeletal: As Per HPI - Integumentary Integumentary: As Per HPI, Dry Skin, Skin Pain, Wounds - Neurological Neurological: absent: As Per HPI, Abnormal Gait, Abnormal Hearing, Abnormal Movements, Abnormal Speech, Behavioral Changes, Burning Sensations, Confusion, Convulsions, Disequilibrium, Dizziness, Numbness, Focal Weakness, Frequent Falls , Headaches, Lack of Coordination, Loss of Vision, Memory Loss, Paresthesias, Radicular Pain, Restless Legs, Sensory Deficit, Syncope, Tingling, Tremor, Vertigo, Weakness, Other Visual Disturbances, Other - Psychiatric Psychiatric: As Per HPI - Endocrine Endocrine: absent: As Per HPI, Change in Body Appearance, Change in Libido, Cold Intolorance, Deepening of Voice, Excessive Sweating, Fatigue, Flushing, Heat Intolorance, Increase in Ring/Shoe/Hat Size, Palpitations, Polydipsia, Polyphagia, Polyuria, Other - Hematologic/Lymphatic Hematologic: absent: As Per HPI, Easy Bleeding, Easy Bruising, Lymphadenopathy, Other Past Patient History - Infectious Disease Hx of Infectious Diseases: None - Tetanus Immunizations Tetanus Immunization: Unknown - Past Medical History & Family History Past Medical History?: Yes - Past Social History Alcohol: None Drugs: Denies - CARDIAC Hx Congestive Heart Failure: Yes Hx Hypercholesterolemia: Yes Hx Hypertension: Yes - PULMONARY Hx Asthma: Yes Hx Chronic Obstructive Pulmonary Disease (COPD): Yes - HEENT Hx HEENT Problems: Yes Hx Cataracts: Yes Other/Comment: hard of hearing - RENAL Hx Chronic Kidney Disease: Yes (renal insufficiency) - PSYCHIATRIC Hx Anxiety: Yes Hx Bipolar Disorder: Yes Hx Depression: Yes Hx Schizophrenia: Yes - SURGICAL HISTORY Hx Tonsillectomy: Yes - ANESTHESIA Hx Anesthesia: Yes Hx Anesthesia Reactions: No Hx Malignant Hyperthermia: No Meds Allergies/Adverse Reactions: Allergies Allergy/AdvReac Type Severity Reaction Status Date / Time No Known Allergies Allergy Verified 11/17/17 14:22 - Medications Medications: Current Medications Acetaminophen (Tylenol 325mg Tab) 650 mg PO Q4 PRN PRN Reason: Pain, moderate (4-7) Al Hydrox/Mg Hydrox/Simethicone (Maalox Plus 30 Ml) 30 ml PO Q4 PRN PRN Reason: Dyspepsia Aspirin (Ecotrin) 81 mg PO DAILY [facility] Last Admin: 01/29/18 09:22 Dose: Not Given Bacitracin (Bacitracin) 1 ea TOP DAILY [facility] Last Admin: 01/29/18 09:08 Dose: 1 ea Bismuth Subsalicylate (Pepto-Bismol) 524 mg PO Q4 PRN PRN Reason: Diarrhea Ciprofloxacin (Cipro) 500 mg PO Q12 [facility] PRN Reason: Protocol Last Admin: 01/29/18 09:22 Dose: Not Given Divalproex Sodium (Depakote Sprinkles) 250 mg PO DAILY [facility] Last Admin: 01/29/18 09:20 Dose: Not Given Divalproex Sodium (Depakote Sprinkles) 375 mg PO DAILY@1700 [facility] Last Admin: 01/28/18 17:17 Dose: 375 mg Finasteride (Proscar) 5 mg PO DAILY@1800 [facility] Last Admin: 01/28/18 18:12 Dose: 5 mg Furosemide (Lasix) 20 mg PO DAILY [facility] Last Admin: 01/24/18 11:41 Dose: 20 mg Lactic Acid (Lac-Hydrin 12% Lotion (225 G)) 1 applic TOP TID [facility] Last Admin: 01/29/18 09:08 Dose: 1 applic Lorazepam (Ativan) 0.5 mg PO HS PRN PRN Reason: Insomnia Stop: 02/04/18 22:38 Lorazepam (Ativan) 0.5 mg PO Q6 PRN PRN Reason: Agitation Magnesium Hydroxide (Milk Of Magnesia) 30 ml PO HS PRN PRN Reason: Constipation Megestrol Acetate (Megace) 400 mg PO DAILY [facility] Last Admin: 01/29/18 09:22 Dose: Not Given Metoprolol Succinate (Toprol Xl) 12.5 mg PO DAILY [facility] Last Admin: 01/29/18 09:21 Dose: Not Given Mirtazapine (Remeron) 22.5 mg PO HS [facility] Last Admin: 01/28/18 21:05 Dose: 22.5 mg Tamsulosin HCl (Flomax) 0.4 mg PO DAILY@1800 [facility] Last Admin: 01/28/18 18:12 Dose: 0.4 mg Vitamin A (Vitamin A & D Oint Ud Foilpak) 1 ea TOP QSHIFT [facility] Physical Exam - Constitutional Appears: Non-toxic, Older Than Stated Age, Cachectic, Chronically Ill - Head Exam Head Exam: ATRAUMATIC, NORMAL INSPECTION, NORMOCEPHALIC - Eye Exam Eye Exam: PERRL. absent: Scleral icterus - ENT Exam ENT Exam: Mucous Membranes Dry, Normal External Ear Exam - Neck Exam Neck exam: Negative for: Lymphadenopathy, Thyromegaly - Respiratory Exam Respiratory Exam: Decreased Breath Sounds, Prolonged Expiratory Phase, Rhonchi - Cardiovascular Exam Cardiovascular Exam: REGULAR RHYTHM, +S1, +S2 - GI/Abdominal Exam GI & Abdominal Exam: Diminished Bowel Sounds, Soft. absent: Tenderness - Rectal Exam Rectal Exam: Deferred - Exam Exam: NORMAL INSPECTION - Extremities Exam Extremities exam: Positive for: pedal edema, tenderness. Negative for: calf tenderness Additional comments: Vascular: DP/PT 1/4 bilaterally, CFT >3 seconds to all digits, hyperpigmentation noted to bilateral lower extremities, venous stasis noted b/ l. Edema noted to b/l lower extremities with +2 edema noted to right second metatarsal and hallux Ortho: HAV deformity bilaterally, unable to assess MMT Neuro: Gross sensation intact, protective sensation unable to assess bilaterally. Derm: Ulceration noted to dorsal aspect of right second digit measuring approximately 1x1x.01 cm, no probe to bone, no drainage, no tracking, no undermining. Cellulitis extending from distal apsect of second digit to base of proximal phalanx. Friable skin noted to dorsal medial aspect of right hallux, interdigital maceration noted to all interspaces bilaterally. - Back Exam Back exam: absent: CVA tenderness (L), CVA tenderness (R) - Neurological Exam Neurological exam: Alert, CN II-XII Intact, Oriented x3, Reflexes Normal - Psychiatric Exam Psychiatric exam: Depressed - Skin Skin Exam: Dry, Intact Results - Vital Signs Recent Vital Signs: Last Vital Signs Temp 97.8 F 01/29/18 06:00 Pulse 105 H 01/29/18 09:21 Resp 18 01/29/18 06:00 BP 97/67 L 01/29/18 09:21 Pulse Ox 100 01/23/18 14:46 - Labs Result Diagrams: 01/24/18 06:18 01/29/18 06:10 Labs: Laboratory Results - last 24 hr 01/29/18 06:10 Sodium 142 Potassium 4.0 Chloride 109 H Carbon Dioxide 29 Anion Gap 8 L BUN 23 H Creatinine 1.0 Est GFR ( Amer) > 60 Est GFR (Non-Af Amer) > 60 Random Glucose 78 Calcium 9.0 Assessment & Plan (1) Bipolar disorder Status: Acute (2) Depressive episode Status: Acute (3) Failure to thrive Status: Acute (4) Cellulitis Status: Acute - Assessment and Plan (Free Text) Assessment: cellulitis with ulcer right foot doubt OM await arterial studies consider vascular consult/ imaging ( xray +/- MRI foot or bone scan ) will start oral antibiotics may need debridement
--- NOTE | 2018-01-29 13:36 | RAD ---
Date of service: 01/28/2018 PROCEDURE: Bilateral Feet Radiographs. HISTORY: ulceration and cellulitis to b/l lower extremities COMPARISON: None. FINDINGS: BONES: Right Foot: Normal. No fracture. Left Foot: Normal. No fracture. JOINTS: Right Foot: Moderate hallux valgus deformity. Left Foot: Symmetrical hallux valgus deformity SOFT TISSUES: Right Foot: Normal. Left Foot: Normal. OTHER FINDINGS: Bilateral hammertoe deformities. IMPRESSION: Degenerative changes common no acute findings.
--- NOTE | 2018-01-29 13:37 | RAD ---
Date of service: 01/28/2018 PROCEDURE: Bilateral ankles. HISTORY: ulceration and cellulitis to b/l lower extremities COMPARISON: None TECHNIQUE: Standard protocol for this study/examination. FINDINGS: No significant/acute osseous, articular or soft tissue abnormalities. IMPRESSION: No acute findings related to/accounting for the clinical presentation.
[2018-01-29] MEDS: Amoxicillin-Clav 875-125 mg Tab PO SCH (21:13)
[2018-01-30 07:44] LABS: BASO % 0.6 % (0.0-2.0); EOS # 0.2 K/uL (0.0-0.7); EOS % 2.7 % (0.0-4.0); HEMOGLOBIN 11.5 g/dL (12.0-18.0); LYMPH # 1.8 K/uL (1.0-4.3); LYMPH % 25.3 % (20.0-40.0); MEAN CELL VOLUME 85.1 fl (80.0-94.0); MEAN CORPUSCULAR HEMOGLOBIN 28.1 pg (27.0-31.0); MEAN CORPUSCULAR HGB CONC 33.1 g/dL (33.0-37.0); MEAN PLATELET VOLUME 10.8 fl (7.2-11.7); MONO # 0.7 K/uL (0.0-0.8); MONO % 9.7 % (0.0-10.0); NEUT # 4.3 K/uL (1.8-7.0); NEUT % 61.7 % (50.0-75.0); NRBC % 0.1 % (0.0-0.0); RBC 4.1 Mil/uL (4.40-5.90); RED CELL DISTRIBUTION WIDTH 15.9 % (11.5-14.5)
[2018-01-30 07:47] LABS: ALB/GLOB RATIO 0.9 (1.0-2.1); ALT/SGPT 12 U/L (21-72); AST/SGOT 20 U/L (17-59); BLOOD UREA NITROGEN 22 mg/dl (9-20); CALCIUM 9.1 mg/dL (8.4-10.2); GFR NON-AFRICAN AMERICAN > 60
[2018-01-30] MEDS ORDERED: Divalproex 125 mg Sprinkle Capsule PO SCH (08:13)
[2018-01-30] MEDS: Megestrol Acetate 40 mg/ml Cup PO SCH (08:17)
[2018-01-30] MEDS: Divalproex 125 mg Sprinkle Capsule PO SCH (08:18)
[2018-01-30] MEDS: Metoprolol Succinate 25 mg XL Tab PO SCH (08:21)
[2018-01-30] MEDS: Bacitracin 500 Units/gm Oint Foilpak UD TOP SCH (09:27)
--- NOTE | 2018-01-30 09:30 | PCM.PYCHPN ---
Psychiatric Progress Note - Psychiatric Progress Note Patient seen today, length of contact: Patient evaluated, case discussed w/ team , chart reviewed Patient Chief Complaint: Decreased functioning/ refusal to eat and take medications Problems Identified/Issues Discussed: Patient is approaching his baseline of functioning. He has improved PO intake. No acute behavioral disturbances. His mood is more stable and he is redirectable during conversation. Diagnostic Results: VPA 27.7 on 01/24/18; VPA 28.8 on 01/30/18 Medication Change: Yes (Increase Depakote and Remeron) Medical Record Reviewed: Yes Consults ordered or reviewed: Medicine/ PT/OT/ Dietitian/ Psychology consult Mental Status Examination - Cognitive Function Orientation: Person, Place, Situation, Time Memory: Impaired Attention: Poor Concentration: Poor Fund of Knowledge: Poor Decription of patient's judgement and insights: Poor I/J - Mood Mood: Neutral - Affect Affect: Constricted - Speech Speech: Soft - Formal Thought Process Formal Thought Process: Loosening of associations Psychotic Thoughts and Behaviors: Denies AH/VH/paranoia - Suicidal Ideation Suicidal Ideation: No - Homicidal Ideation Homicidal Ideation: No Goal/Treatment Plan - Goal/Treatment Plan Need for Continued Stay: Discharge may exacerbated symptoms, Severe functional impairment Progress Toward Problem(s) and Goals/Treatment Plan: Bipolar Disorder; Dementia -Monitor caloric intake -Individual and group therapy -Increase Remeron to 30 mg PO HS -Increase Depakote to 250 mg PO AM/ 500 mg PO Daily@1700; VPA 28.6 on 01/30/18 -Medicine consult -Continue Megace -Dietary consult -Podiatry consult -Psychology consult -PT/OT -Disposition planning Estimated Date of D/C: 01/31/18
--- NOTE | 2018-01-30 10:54 | CP.PCM.PN ---
Subjective - Date & Time of Evaluation Date of Evaluation: 01/30/18 Time of Evaluation: 10:52 - Subjective Subjective: Progress note for Dr. Day: 73 yo male patient, seen and evaluated for right foot ulceration. Patient states that his toes hurt and he has kept his dressing dry. Unable to obtain full medical history as well as history of ulcers at this time from patient. Patient denies N/V/F/SOB/CP. Objective - Vital Signs/Intake and Output Vital Signs (last 24 hours): Temp Pulse Resp BP Pulse Ox 97.1 F L 116 H 90 H 101/57 L 100 01/30/18 06:00 01/30/18 08:21 01/30/18 06:00 01/30/18 08:21 01/23/18 14:46 - Medications Medications: Current Medications Acetaminophen (Tylenol 325mg Tab) 650 mg PO Q4 PRN PRN Reason: Pain, moderate (4-7) Al Hydrox/Mg Hydrox/Simethicone (Maalox Plus 30 Ml) 30 ml PO Q4 PRN PRN Reason: Dyspepsia Amoxicillin/Clavulanate Potassium (Augmentin 875 Mg-125 Mg Tab) 1 tab PO Q12 [facility] PRN Reason: Protocol Last Admin: 01/29/18 21:13 Dose: 1 tab Aspirin (Ecotrin) 81 mg PO DAILY [facility] Last Admin: 01/30/18 08:18 Dose: 81 mg Bacitracin (Bacitracin) 1 ea TOP DAILY [facility] Last Admin: 01/29/18 09:08 Dose: 1 ea Bismuth Subsalicylate (Pepto-Bismol) 524 mg PO Q4 PRN PRN Reason: Diarrhea Ciprofloxacin (Cipro) 500 mg PO Q12 [facility] PRN Reason: Protocol Last Admin: 01/30/18 08:18 Dose: 500 mg Divalproex Sodium (Depakote Sprinkles) 250 mg PO DAILY [facility] Last Admin: 01/30/18 08:18 Dose: 250 mg Divalproex Sodium (Depakote Sprinkles) 500 mg PO DAILY@1700 [facility] Finasteride (Proscar) 5 mg PO DAILY@1800 [facility] Last Admin: 01/29/18 18:00 Dose: 5 mg Furosemide (Lasix) 20 mg PO DAILY [facility] Last Admin: 01/24/18 11:41 Dose: 20 mg Lactic Acid (Lac-Hydrin 12% Lotion (225 G)) 1 applic TOP TID [facility] Last Admin: 01/30/18 08:18 Dose: 1 applic Lorazepam (Ativan) 0.5 mg PO HS PRN PRN Reason: Insomnia Stop: 02/04/18 22:38 Lorazepam (Ativan) 0.5 mg PO Q6 PRN PRN Reason: Agitation Magnesium Hydroxide (Milk Of Magnesia) 30 ml PO HS PRN PRN Reason: Constipation Megestrol Acetate (Megace) 400 mg PO DAILY [facility] Last Admin: 01/30/18 08:17 Dose: 400 mg Metoprolol Succinate (Toprol Xl) 12.5 mg PO DAILY [facility] Last Admin: 01/30/18 08:21 Dose: 12.5 mg Mirtazapine (Remeron) 30 mg PO HS [facility] Tamsulosin HCl (Flomax) 0.4 mg PO DAILY@1800 [facility] Last Admin: 01/29/18 17:59 Dose: 0.4 mg Vitamin A (Vitamin A & D Oint Ud Foilpak) 1 ea TOP QSHIFT [facility] - Labs Labs: 01/30/18 07:14 01/30/18 07:14 - Constitutional Appears: Well, Non-toxic, No Acute Distress - Extremities Exam Additional comments: Vascular: DP/PT nonpalpable right foot, CFT <3 seconds to all digits, hyperpigmentation noted to bilateral lower extremities, venous stasis noted b/ l. Edema noted to b/l lower extremities with +2 edema noted to right second metatarsal and hallux Ortho: HAV deformity bilaterally, unable to assess MMT Neuro: Gross sensation intact, protective sensation unable to assess bilaterally. Derm: Ulceration noted to dorsal aspect of right second digit measuring approximately 1x1x.01 cm, no probe to bone, no drainage, no tracking, no undermining. Cellulitis demarcated and extending from distal apsect of second digit to base of proximal phalanx. Friable skin noted to dorsal medial aspect of right hallux, interdigital maceration noted to all interspaces bilaterally. Thickened, hypertrophic nails x10. - Neurological Exam Neurological Exam: Alert, Awake - Psychiatric Exam Psychiatric exam: Normal Affect, Normal Mood Assessment and Plan - Assessment and Plan (Free Text) Assessment: 73 yo male patient, seen and evaluated for right second digit ulceration and cellulitis Plan: Patient seen and evaluated Discussed in detail with Dr. Barb Sevilla foot and ankle x-ray's: degenerative changes common; no acute findings ANGELICA/PVRs; ordered Wound dressed with betadine and DSD as maceration present ID consulted - Augmentin added to medication list - rec appreciated Unable to assess history of wounds with patient Podiatry will continue to follow while in house
[2018-01-30] MEDS: Amoxicillin-Clav 875-125 mg Tab PO SCH ×2 (13:27→21:08)
[2018-01-31 06:11] VITALS: BP 106/58; PULSE 90; RESP 20; TEMP 98.1
[2018-01-31] MEDS: Amoxicillin-Clav 875-125 mg Tab PO SCH (08:06)
[2018-01-31] MEDS: Divalproex 125 mg Sprinkle Capsule PO SCH (08:07)
[2018-01-31] MEDS: Bacitracin 500 Units/gm Oint Foilpak UD TOP SCH (08:07)
[2018-01-31] MEDS: Megestrol Acetate 40 mg/ml Cup PO SCH (08:08)
[2018-01-31] MEDS: Metoprolol Succinate 25 mg XL Tab PO SCH (08:09)
--- NOTE | 2018-01-31 08:42 | PCM.PYCHDC ---
Mental Status Examination - Mental Status Examination Orientation: Person, Place, Situation, Time Memory: Impaired Mood: Neutral Affect: Broad Speech: Appropriate Attention: Poor Concentration: Poor Association: WNL Formal Thought Process: No Impairment Description of patient's judgement and insight: Limited I/J due to chronic dementia Psychotic Thoughts and Behaviors: Denies AH/VH/paranoia Suicidal Ideation: No Current Homicidal Ideation?: No Discharge Summary - Discharge Note Reason for Hospitalization: HPI: 73 yo male w/ h/o bipolar disorder vs schizoaffective disorder, was sent by shelter for worsening depression, refusal to eat/drink food and take medications and also make suicidal comments, such as asking how long he would need to stop eating before he would . Patient is denying to public relations writer that he made any suicidal comments and denies any acute ideation to harm self or others. He denies acute AH/VH. PPHx: Currently being prescribed Depakote, Remeron and Trazodone, but patient has been non-compliant with medications PMHx: CAD, HLD, BPH, CKD, Obstructive and reflex uropathy, HTN; current UTI- started on Cipro 01/19/18 ALL: NKDA SHx: Resides in [place], no drugs/cig/etoh Laboratory Data: Abnormal Lab Results 01/30/18 07:14 25-OH Vitamin D Total < 12.8 L Consultations:: List each consultation separately and include: 1. Reason for request. 2. Findings. 3. Follow-up Consultations: Medicine/ PT/OT/ Dietitian/ Psychology consult/ Infectious Disease consult/ Podiatry consult Summary of Hospital Course include:: 1. Description of specific treatment plan utilized for patients during their course of treatmen. 2. Summarize the time- course for resolution of acute symptoms and/or regressed behaviors. 3. Describe issues identified and worked on during hospitalization. 4. Describe medication utilized. 5. Describe medical problems identified and treated. 6. Reassessment of suicide risk Summary of Hospital Course: Patient was admitted to the geriatric psychiatry unit. Individual and group therapy were provided. Patient was stabilized on Remeron 30 mg PO HS and Depakote 250 mg PO AM/ 500 mg PO HS. He was seen by dietitian who recommended Ensure clear. Patient has improved appetite and no longer reports mood disturbances. He is in good behavioral control without any incidents of aggression. Patient was seen by podiatry, medicine, psychology, infectious disease, PT/OT consults. Patient completed course of Ciprofloxacin for UTI. He started treatment with Augmentin for Right foot ulcer on 01/29/18 and should complete two weeks of treatment as per Infectious Disease Transportation Program Director. Patient should continue follow-up care with a art education professor upon return to shelter. - Diagnosis (1) Bipolar disorder Current Visit: Yes Status: Chronic (2) Dementia Current Visit: Yes Status: Chronic - Final Diagnosis (DSM 5) Condition upon Discharge: STABLE DSM 5: Bipolar Disorder; Dementia Disposition: TRANSF TO [facility] Follow-up Treatment Plan: Bipolar Disorder; Dementia; Patient completed course of Ciprofloxacin for UTI. He started treatment with Augmentin for Right foot ulcer on 01/29/18 and should complete two weeks of treatment as per Infectious Disease Transportation Program Director. Patient should continue follow-up care with a art education professor upon return to shelter. -Individual and group therapy -Continue Remeron 30 mg PO HS -Continue Depakote 250 mg PO AM/ 500 mg PO Daily@1700; VPA 28.6 on 01/30/18 -Medicine consult -Infectious Disease consult -Continue Megace -Vitamin D supplement for Vitamin D deficiency -Dietary consult; patient given Ensure Clear -Podiatry consult -Psychology consult -PT/OT -Discharge back to shelter - Smoking Cessation Smoking Cessation Medication prescribed: No Reason for not providing: Not indicated - Antipsychotic Medications Pt discharged on 2 or more routine antipsychotic medications: No
[2018-01-31] MEDS ORDERED: Cholecalciferol 400 Intl Units Tab PO SCH (09:00)
== END 2018-01-31 14:41 | DRG 885 ==
LOC: H.ER 14:09 → H.STEP 20:19
PROVIDERS: ADMIT Psychiatry & Neurology Psychiatry; ATTEND Psychiatry & Neurology Psychiatry
PROC: GZHZZZZ Group Psychotherapy (ICD-10-PCS; principal; 2018-01-21)
PROC: GZ56ZZZ Individual Psychotherapy, Supportive (ICD-10-PCS; 2018-01-21)
DX: F31.9 Bipolar disorder, unspecified (principal); L03.115 Cellulitis of right lower limb; N39.0 Urinary tract infection, site not specified; I13.0 Hypertensive heart and chronic kidney disease with heart failure and stage 1 through stage 4 chronic kidney disease, or unspecified chronic kidney disease; N13.8 Other obstructive and reflux uropathy; R62.7 Adult failure to thrive; I25.10 Atherosclerotic heart disease of native coronary artery without angina pectoris; F01.50 Vascular dementia, unspecified severity, without behavioral disturbance, psychotic disturbance, mood disturbance, and anxiety; J44.9 Chronic obstructive pulmonary disease, unspecified; I50.9 Heart failure, unspecified; N18.9 Chronic kidney disease, unspecified; L97.519 Non-pressure chronic ulcer of other part of right foot with unspecified severity; L60.2 Onychogryphosis; E78.5 Hyperlipidemia, unspecified; N40.1 Benign prostatic hyperplasia with lower urinary tract symptoms; E55.9 Vitamin D deficiency, unspecified; E78.00 Pure hypercholesterolemia, unspecified